=== PATIENT | female | born 1935 | race Hispanic/Latino ===

== ENCOUNTER → 2019-06-09 | Outpatient (CLI) | payer OTHER, MEDICARE ==
[~2019-06-09] MED LIST: ALBU8.5H8; AMLODIPINE PO; CETI10CA5 PO; MONT10TA21 PO; OMEP40CA13 PO; SPIRIVA; SYMBICORT
== END | disposition home or self-care (01) ==
LOC: SHCH 14:46
PROVIDERS: ATTEND Internal Medicine Cardiovascular Disease
DX: R06.9 Unspecified abnormalities of breathing (principal)
CPT/HCPCS: 93306; 93356

== ENCOUNTER 2020-09-20 13:41 | Observation (INO) | payer OTHER, MEDICARE ==
[~2020-09-20] VITALS: Ht 165.1 cm; Wt 82.1 kg
[~2020-09-20 13:41] MED LIST changes: -OMEP40CA13 PO; +OMEP40CA21 PO
[2020-09-20 14:00] VITALS: BP 154/51
[2020-09-20 14:33] LABS: BASOPHILS % (AUTO) 0.1 % (0.0-5.0); EOSINOPHILS % (AUTO) 0.1 % (0.0-8.0); LYMPHOCYTES % (AUTO) 8.8 % (21.0-51.0); MEAN CORPUSCULAR HEMOGLOBIN 30.8 pg (27.0-33.0); MEAN CORPUSCULAR HGB CONC 32.4 g/dL (32.0-36.0); MEAN CORPUSCULAR VOLUME 95.2 fL (79-99); MONOCYTES % (AUTO) 2.9 % (3.0-13.0); NEUTROPHILS % (AUTO) 87.2 % (40.0-77.0); PLATELET COUNT (AUTO) 244 K/uL (130-400); RED BLOOD CELL COUNT(AUTO) 3.99 MIL/uL (4.00-5.50); RED CELL DISTRIBUTION WIDTH 12.6 % (11.0-15.5); WHITE BLOOD COUNT (AUTO) 9.8 K/uL (4.8-10.8)
[2020-09-20 14:48] LABS: ALBUMIN 3.8 g/dL (3.5-5.0); BILIRUBIN,TOTAL 0.6 mg/dL (0.2-1.0); CREATININE 1.4 mg/dL (0.5-1.5); TOTAL PROTEIN, SERUM 7.4 g/dL (6.0-8.3)
[2020-09-20 15:03] LABS: POTASSIUM 6.3 mmol/L (3.5-5.1)
[2020-09-20] MEDS ORDERED: CALCIUM GLUC 1GM VIAL 1 GM in 0.9%NACL 100ML 100 ML IV ONE (17:00)
[2020-09-20] MEDS ORDERED: KAYEXALATE 15GM/60ML PO ONE (17:00)
[2020-09-20] MEDS ORDERED: SODIUM BICARB 8.4% 50ML SYRINGE IVP ONE (17:00)
[2020-09-20] MEDS ORDERED: INSULIN HUMULIN R 100 UNIT/ML 3ML IV ONE ×2 (17:00→19:50)
[2020-09-20] MEDS ORDERED: DEXTROSE 50%-WATER 25 GM/50 ML VIAL IV ONE (17:00)
[2020-09-20] MEDS ORDERED: FUROSEMIDE 40 MG UD CUP PO ONE (17:00)
[2020-09-20 18:00] VITALS: BP 166/61
[2020-09-20] MEDS ORDERED: KAYEXALATE 15GM/60ML ONE (18:32)
[2020-09-20] MEDS ORDERED: SODIUM BICARB 50MEQ 50ML VIAL 50 ML ONE (18:33)
[2020-09-20] MEDS ORDERED: FUROSEMIDE 40MG VIAL ONE (18:33)
[2020-09-20] MEDS ORDERED: DEXTROSE 50%-WATER 50 ML DISP.SYRIN IV ONE (18:33)
[2020-09-20] MEDS ORDERED: INSULIN HUMULIN R 100 UNIT/ML 3ML ONE ×2 (18:34→18:55)
[2020-09-20] MEDS ORDERED: CETI10TA86 PO (19:02)
[2020-09-20] MEDS ORDERED: OLME40TA18 PO (19:02)
[2020-09-20] MEDS ORDERED: SPIR100T5 PO (19:02)
[2020-09-20] MEDS ORDERED: NEBI5TAB8 PO (19:02)
[2020-09-20 19:24] VITALS: BP 169/56
[2020-09-20] MEDS ORDERED: ONDANSETRON 4MG INJ IV PRN (19:30)
[2020-09-20] MEDS ORDERED: ACETAMINOPHEN 325 MG TAB PO PRN ×2 (19:30)
[2020-09-20] MEDS: PHARMACY COMMUNICATION MISC SCH (19:48)
[2020-09-20] MEDS: HYDRALAZINE 25MG TABLET PO SCH (20:57)
[2020-09-20] MEDS ORDERED: FAMOTIDINE 20MG VIAL IV SCH (21:00)
[2020-09-20 21:30] VITALS: BP 154/51
[2020-09-20] MEDS: ALBUTEROL 0.083% 2.5 MG/3 ML INH IH SCH (21:46)
[2020-09-21] VITALS (7 sets, daily range): BP systolic 131–174; BP diastolic 50–69
[2020-09-21] MEDS: PHARMACY COMMUNICATION MISC SCH
[2020-09-21] MEDS: ALBUTEROL 0.083% 2.5 MG/3 ML INH IH SCH ×3 (01:23→11:03)
[2020-09-21] MEDS ORDERED: FLUT1BLS15 IH (03:28)
[2020-09-21] MEDS ORDERED: OLME40TA18 PO (03:28)
[2020-09-21] MEDS ORDERED: PRED10TA3 PO ×2 (03:28)
[2020-09-21] MEDS ORDERED: ALBU8.5H8 IH (03:28)
[2020-09-21] MEDS ORDERED: PANT40TA54 PO (03:28)
[2020-09-21] MEDS ORDERED: MONT10TA21 PO (03:28)
[2020-09-21] MEDS ORDERED: FLUT16H NASAL (03:28)
[2020-09-21] MEDS ORDERED: AMLO-257 PO (03:28)
[2020-09-21] MEDS ORDERED: SPIR100T5 PO (03:28)
[2020-09-21] MEDS: HYDRALAZINE 25MG TABLET PO SCH ×2 (04:15→13:38)
[2020-09-21 06:27] LABS: BASOPHILS % (AUTO) 0.3 % (0.0-5.0); EOSINOPHILS % (AUTO) 0.7 % (0.0-8.0); HEMATOCRIT 36.8 % (36-48); LYMPHOCYTES % (AUTO) 15.7 % (21.0-51.0); MEAN CORPUSCULAR HEMOGLOBIN 30.4 pg (27.0-33.0); MEAN CORPUSCULAR HGB CONC 32.9 g/dL (32.0-36.0); MEAN CORPUSCULAR VOLUME 92.5 fL (79-99); MONOCYTES % (AUTO) 9.6 % (3.0-13.0); NEUTROPHILS % (AUTO) 72.6 % (40.0-77.0); PLATELET COUNT (AUTO) 211 K/uL (130-400); RED BLOOD CELL COUNT(AUTO) 3.98 MIL/uL (4.00-5.50); RED CELL DISTRIBUTION WIDTH 12.6 % (11.0-15.5); WHITE BLOOD COUNT (AUTO) 12.4 K/uL (4.8-10.8)
[2020-09-21 06:43] LABS: CREATININE 1.4 mg/dL (0.5-1.5); POTASSIUM 4.5 mmol/L (3.5-5.1)
[2020-09-21] MEDS ORDERED: NON-FORMULARY MEDICATION 1 EACH (Cetirizine HCl 10 MG) PO SCH (09:00)
[2020-09-21] MEDS ORDERED: NEBIVOLOL 5 MG PO SCH (09:00)
[2020-09-21] MEDS ORDERED: ENOXAPARIN SODIUM 40 MG/0.4 ML SYRINGE SQ SCH (09:00)
[2020-09-21] MEDS ORDERED: CETIRIZINE HCL 5 MG TABLET PO SCH (09:00)
[2020-09-21] MEDS ORDERED: AMLODIPINE 10 MG PO SCH (09:00)
[2020-09-21] MEDS ORDERED: AMLODIPINE 5 MG TAB PO SCH ×2 (09:00)
[2020-09-21] MEDS ORDERED: NEBIVOLOL HCL 5 MG PO SCH (09:00)
[2020-09-21 12:15] LABS: CREATININE 1.4 mg/dL (0.5-1.5); POTASSIUM 4.3 mmol/L (3.5-5.1)
[2020-09-21 12:53] LABS: APPEARANCE,URINE Clear (CLEAR); BILIRUBIN,URINE Negative (NEGATIVE); COLOR,URINE Yellow (YELLOW); GLUCOSE, URINE (UA) 500 mg/dL (NEGATIVE); KETONES,URINE Negative (NEGATIVE); LEUKOCYTE ESTERASE ,URINE Negative (NEGATIVE); NITRATE,URINE Negative (NEGATIVE); OCCULT BLOOD,URINE Negative (NEGATIVE); PH,URINE 7.5 (5.0-8.0); PROTEIN,URINE Negative (NEGATIVE); UROBILINOGEN,URINE 0.2 mg/dL (0.2-1.0)
[2020-09-21 13:17] LABS: BACTERIA,URINE Rare /HPF (None Seen); RBC,URINE 0-1 /HPF (0-1); SQUAMOUS EPITHELIAL CELL,UR Rare /HPF (0-2); WBC,URINE 0-1 /HPF (0-1)
[2020-09-21 14:18] LABS: HEMOGLOBIN A1C 5.2 % (4.0-6.0)
[2020-09-21] MEDS ORDERED: AMLO-258 PO (15:39)
[2020-09-22] MEDS ORDERED: MONTELUKAST SODIUM 10 MG TAB PO SCH (13:00)
[2020-09-22] MEDS ORDERED: PANTOPRAZOLE 40 MG TAB DR PO SCH (13:00)
[2020-09-22] MEDS ORDERED: PREDNISONE 10 MG TABLET PO SCH (13:00)
== END 2020-09-21 19:55 | disposition home or self-care (01) ==
LOC: EDH 13:41 → EDHIP 19:04 → 4BH 09-21 02:45
PROVIDERS: ADMIT Internal Medicine; ATTEND Internal Medicine
DX: E87.5 Hyperkalemia (principal); I10 Essential (primary) hypertension; J45.909 Unspecified asthma, uncomplicated; Z79.899 Other long term (current) drug therapy; Z90.710 Acquired absence of both cervix and uterus; Z96.651 Presence of right artificial knee joint
CPT/HCPCS: 36415 ×2; 71045; 80048 ×2; 80053; 81001; 82947; 82948 ×4; 83036; 84132; 84484; 85025 ×2; 86140; 93005 ×2; 94640 ×4; 94664; 96372; 96374; 96375; 96376; 99285; G0378 ×24; J0610; J1650; J1815 ×2; J3490 ×2; J7070; 96365; J1940

== ENCOUNTER 2021-01-26 13:48 | Emergency (ER) | payer OTHER, MEDICARE ==
[~2021-01-26] VITALS: Ht 157.5 cm; Wt 79.4 kg
[~2021-01-26 13:48] MED LIST changes: -ALBU8.5H8; +ALBU8.5H8 IH; +AMLO-258 PO; +CETI10TA87 PO; +FLUT16H NASAL; +FLUT1BLS15 IH; +NEBI5TAB8 PO; -OMEP40CA21 PO; +PANT40TA54 PO; +PRED10TA3 PO; -SPIRIVA; -SYMBICORT
[2021-01-26 14:27] LABS: BASOPHILS % (AUTO) 0.9 % (0.0-5.0); EOSINOPHILS % (AUTO) 3.1 % (0.0-8.0); LYMPHOCYTES % (AUTO) 14.2 % (21.0-51.0); MEAN CORPUSCULAR HEMOGLOBIN 28.8 pg (27.0-33.0); MONOCYTES % (AUTO) 8.6 % (3.0-13.0); NEUTROPHILS % (AUTO) 72.5 % (40.0-77.0); PLATELET COUNT (AUTO) 225 K/uL (130-400); RED BLOOD CELL COUNT(AUTO) 3.89 MIL/uL (4.00-5.50); RED CELL DISTRIBUTION WIDTH 13.1 % (11.0-15.5); WHITE BLOOD COUNT (AUTO) 10.1 K/uL (4.8-10.8)
[2021-01-26 14:47] LABS: CREATININE 1.2 mg/dL (0.5-1.5); POTASSIUM 4.2 mmol/L (3.5-5.1)
[2021-01-26] MEDS ORDERED: ALBUTEROL 0.083% 2.5 MG/3 ML INH IH ONE (14:48)
[2021-01-26 14:51] LABS: ALBUMIN 3.4 g/dL (3.5-5.0); BILIRUBIN,TOTAL 0.6 mg/dL (0.2-1.0); TOTAL PROTEIN, SERUM 6.8 g/dL (6.0-8.3)
[2021-01-26 15:09] LABS: APPEARANCE,URINE Clear (CLEAR); BILIRUBIN,URINE Negative (NEGATIVE); COLOR,URINE Yellow (YELLOW); GLUCOSE, URINE (UA) Negative (NEGATIVE); KETONES,URINE Negative (NEGATIVE); LEUKOCYTE ESTERASE ,URINE Trace (NEGATIVE); NITRATE,URINE Negative (NEGATIVE); OCCULT BLOOD,URINE Trace (NEGATIVE); PROTEIN,URINE Negative (NEGATIVE); UROBILINOGEN,URINE 0.2 mg/dL (0.2-1.0)
[2021-01-26] MEDS ORDERED: LABETALOL 20MG SYG IV ONE (15:25)
[2021-01-26 15:44] LABS: BACTERIA,URINE Few /HPF (None Seen); RBC,URINE 0-1 /HPF (0-1); WBC,URINE 0-1 /HPF (0-1)
[2021-01-26 15:45] LABS: SQUAMOUS EPITHELIAL CELL,UR Moderate /HPF (0-2)
[2021-01-26] MEDS ORDERED: CLON0.1T PO (16:42)
[2021-01-26] MEDS ORDERED: NIFEDIPINE 10 MG CAP PO SCH ×2 (16:50)
[2021-01-26 17:33] VITALS: BP 148/52
== END 2021-01-26 18:15 | disposition home or self-care (01) ==
LOC: EDH 13:48
DX: I10 Essential (primary) hypertension (principal); D64.9 Anemia, unspecified; J45.909 Unspecified asthma, uncomplicated; E78.00 Pure hypercholesterolemia, unspecified; Z88.2 Allergy status to sulfonamides; Z88.1 Allergy status to other antibiotic agents; Z88.0 Allergy status to penicillin; Z88.6 Allergy status to analgesic agent; Z88.8 Allergy status to other drugs, medicaments and biological substances; Z79.899 Other long term (current) drug therapy; Z79.52 Long term (current) use of systemic steroids
CPT/HCPCS: 36415; 71045; 80053; 81001; 84484; 85025; 93005; 94640; 96374

== ENCOUNTER → 2022-12-07 | Outpatient (CLI) | payer OTHER, MEDICARE ==
[~2022-12-07] MED LIST changes: +CLON0.1T PO; +MONT-47 PO; -MONT10TA21 PO; +NEBI5TAB PO; -NEBI5TAB8 PO; +TRAM100T40 PO
[2022-12-07 12:47] LABS: CREATININE 1.5 mg/dL (0.5-1.5); POTASSIUM 4.5 mmol/L (3.5-5.1)
== END | disposition home or self-care (01) ==
LOC: LAB 09:59
PROVIDERS: ATTEND Internal Medicine Cardiovascular Disease
DX: I10 Essential (primary) hypertension (principal)
CPT/HCPCS: 36415; 80048

== ENCOUNTER → 2022-12-21 | Outpatient (CLI) | payer OTHER, MEDICARE ==
[2022-12-21 12:35] LABS: CREATININE 1.5 mg/dL (0.5-1.5); POTASSIUM 4.3 mmol/L (3.5-5.1)
== END | disposition home or self-care (01) ==
LOC: LAB 09:09
PROVIDERS: ATTEND Internal Medicine Cardiovascular Disease
DX: I10 Essential (primary) hypertension (principal)
CPT/HCPCS: 36415; 80048

== ENCOUNTER → 2023-01-08 | Outpatient (CLI) | payer OTHER, MEDICARE ==
[2023-01-08 12:29] LABS: CREATININE 1.1 mg/dL (0.5-1.5); POTASSIUM 4.2 mmol/L (3.5-5.1)
== END | disposition home or self-care (01) ==
LOC: LAB 08:20
PROVIDERS: ATTEND Nurse Practitioner Acute Care
DX: I10 Essential (primary) hypertension (principal)
CPT/HCPCS: 36415; 80048

== ENCOUNTER → 2023-01-19 | Outpatient (CLI) | payer OTHER, MEDICARE ==
[2023-01-19 12:32] LABS: CREATININE 1.3 mg/dL (0.5-1.5); POTASSIUM 4.4 mmol/L (3.5-5.1)
== END | disposition home or self-care (01) ==
LOC: LAB 09:50
PROVIDERS: ATTEND Internal Medicine Cardiovascular Disease
DX: I10 Essential (primary) hypertension (principal)
CPT/HCPCS: 36415; 80048

== ENCOUNTER → 2023-03-30 | Outpatient (CLI) | payer OTHER, MEDICARE ==
[2023-03-30 12:33] LABS: CREATININE 1.5 mg/dL (0.5-1.5); POTASSIUM 4.8 mmol/L (3.5-5.1)
== END | disposition home or self-care (01) ==
LOC: LAB 09:10
PROVIDERS: ATTEND Internal Medicine Cardiovascular Disease
DX: I10 Essential (primary) hypertension (principal)
CPT/HCPCS: 36415; 80048

== ENCOUNTER → 2023-05-25 | Outpatient (CLI) | payer OTHER, MEDICARE | END | disposition home or self-care (01) | LOC: RAH 09:45 | PROVIDERS: ATTEND Nurse Practitioner Family | DX: M85.88 Other specified disorders of bone density and structure, other site (principal); M81.0 Age-related osteoporosis without current pathological fracture | CPT/HCPCS: 77080 ==

== ENCOUNTER → 2023-08-27 | Outpatient (CLI) | payer OTHER, MEDICARE ==
[~2023-08-27] MED LIST changes: -NEBI5TAB PO; +NEBI5TAB9 PO
[2023-08-27 12:55] LABS: CREATININE 1.7 mg/dL (0.5-1.0); POTASSIUM 4.8 mmol/L (3.5-5.1)
== END | disposition home or self-care (01) ==
LOC: LAB 09:14
PROVIDERS: ATTEND Nurse Practitioner Acute Care
DX: I10 Essential (primary) hypertension (principal)
CPT/HCPCS: 36415; 80048

== ENCOUNTER → 2024-05-26 | Outpatient (CLI) | payer OTHER, MEDICARE ==
[2024-05-26 12:35] LABS: CREATININE 1.5 mg/dL (0.5-1.0); POTASSIUM 5.2 mmol/L (3.5-5.1)
== END | disposition home or self-care (01) ==
LOC: LAB 09:01
PROVIDERS: ATTEND Internal Medicine Cardiovascular Disease
DX: I10 Essential (primary) hypertension (principal)
CPT/HCPCS: 36415; 80048

== ENCOUNTER 2024-11-06 12:45 | Observation (INO) | payer OTHER, MEDICARE ==
[~2024-11-06] VITALS: Ht 165.1 cm; Wt 67.6 kg
[~2024-11-06 12:45] MED LIST changes: -TRAM100T40 PO; +TRAM100T56 PO
--- NOTE | 2024-11-06 13:20 | NUR ---
PATIENT REFUSED BLOOD PRESSURE READING DUE TO PAIN. PT EDUCATED ON IMPORTANCE OF BP MONITORING, PT CONTINUES TO REFUSE.
[2024-11-06 13:23] LABS: APPEARANCE,URINE CLEAR (CLEAR); GLUCOSE, URINE (UA) NEGATIVE (NEGATIVE); LEUKOCYTE ESTERASE ,URINE NEGATIVE Leu/uL (NEGATIVE); NITRATE,URINE NEGATIVE (NEGATIVE); OCCULT BLOOD,URINE NEGATIVE (NEGATIVE)
[2024-11-06 13:29] LABS: ADD UA MICROSCOPIC NO
--- NOTE | 2024-11-06 13:37 | ERN ---
General Chief Complaint: Mechanical Fall Stated Complaint: FALL AND SYNCOPAL EPISODE Time Seen by MD: 12:47 Source: patient History of Present Illness Initial Comments Patient is a an 89-year-old female coming in after she had a syncopal episode earlier today. Per patient she was walking into a restroom after drinking some water felt as if the water was stuck in her throat and passed out. Allergies: Coded Allergies: aspirin (Unverified Allergy, Severe, SHORTNESS OF BREATH, 08/01/13) succinylcholine (Unverified Allergy, Severe, BECAME VERY RIGID, COULD NOT OPEN MOUTH, 08/01/13) pravastatin (Unverified Allergy, Intermediate, 03/03/21) Penicillins (Unverified Allergy, Unknown, GENERALIZED RASH, 08/01/13) acetaminophen (Unverified Allergy, Unknown, SHORTNESS OF BREATH, 12/04/14) WHEEZING ibuprofen (Unverified Allergy, Unknown, TRIGGERS ASTHMA, 08/01/13) propofol (Unverified Allergy, Unknown, 09/21/20) sulfamethoxazole (Unverified Allergy, Unknown, STOMACH PAIN, 08/01/13) trimethoprim (Unverified Allergy, Unknown, STOMACH PAIN, 08/01/13) Home Meds Active Scripts Tramadol HCl (Tramadol HCl) 100 Mg Tablet, 100 MG PO TID, #20 TAB Prov:LYRIC MEYER MD 03/03/21 Clonidine HCl (Clonidine HCl) 0.1 Mg Tablet, 0.1 MG PO TIDP PRN for IF SBP GREATER THAN 180, #21 TAB Prov:SERGIO HANEY 01/26/21 Amlodipine Besylate (Amlodipine Besylate) 10 Mg Tablet, 10 MG PO DAILY for 30 Days, #30 TAB 0 Refills Prov:PARDEEP SCHWARZ MD 09/21/20 Reported Medications Fluticasone Propionate (Flonase Nasal [place]) 50 Mcg/[place], 1 INHALER NASAL DAILY, SPRAY 09/21/20 Pantoprazole Sodium (Pantoprazole Sodium) 40 Mg Tablet.dr, 40 MG PO DAILY, TAB 09/21/20 Montelukast Sodium (Singulair) 10 Mg Tablet, 10 MG PO DAILYBKFST, TAB 09/21/20 Prednisone (Prednisone) 10 Mg Tablet, 10 MG PO DAILY for 3 Days, TAB 09/21/20 Prednisone (Prednisone) 10 Mg Tablet, 20 MG PO DAILYBKFST for 3 Days, TAB 09/21/20 Albuterol Sulfate (Proair Hfa) 8.5 Gm Hfa.aer.ad, 8.5 GM IH Q6HPRN PRN for asthma 09/21/20 Fluticasone/Umeclidin/Vilanter (Trelegy Ellipta 200-62.5-25) 1 Each Blst.w.dev, 1 EACH IH DAILY 09/21/20 Nebivolol HCl (Bystolic) 5 Mg Tablet, 5 MG PO DAILY, TAB 09/20/20 Cetirizine HCl (Cetirizine HCl) 10 Mg Tab.chew, 10 MG PO DAILY, TAB.CHEW 09/20/20 Cetirizine HCl (Zyrtec) 10 Mg Capsule, 10 MG PO HS, CAP 12/03/14 [Amlodipine] No Conflict Check, 10 MG PO DAILY 12/03/14 Past Medical History Past Medical History: Asthma, High Cholesterol, Hypertension, Renal Disese Past Surgical History: None Surgical History Other: BLADDER REPAIR, BTL, LUMBAR FRACTURES, LIPOMA REMOVAL, RIGHT KNEE, SHOULDER Female( History) History: Not Applicable ROS Dictation CONSTITUTIONAL: No chills, no fever, no weakness, no diaphoresis, no malaise. HEAD/FACE: No signs of trauma. EENT: No eye pain, no blurred vision, no tearing, no double vision, no ear pain, no ear discharge, no nose pain, no nasal congestion, no throat pain, no throat swelling, no mouth pain. RESPIRATORY: No cough, no orthopnea, no SOB, no stridor, no wheezing. CARDIOVASCULAR: No chest pain, no edema, no palpitations, no syncope. GASTROINTESTINAL/ABDOMINAL: No abdominal pain, no constipation, no diarrhea, no nausea, no vomiting. GENITOURINARY: No abnormal discharge, no dysuria, no frequent urination, no hematuria. No complaints of pain in the genitals. MUSCULOSKELETAL: No back pain, no gout, no joint pain, no joint swelling, no muscle pain, no muscle stiffness, no neck pain. INTEGUMENTARY: No change in color, no change in hair/nails, no dryness, no lesion, no lumps, no rash. NEUROLOGICAL/PSYCH: No anxiety, not depressed, no emotional problem, no headache, no numbness, no pre-existing deficit, no history of seizures, no tremors, no weakness. HEMATOLOGIC/LYMPHATIC: Not anemic, no history of blood clots, no apparent bleeding, no bruising, glands not swollen. All Systems Negative, Except as Noted. Physical Exam Physical Exam Dictation VITAL SIGNS: Reviewed. GENERAL APPEARANCE: Alert, oriented x3, no acute distress, obese. HEAD AND FACE: Non-traumatic. EYES: PERRL, pink conjunctivas, eyelid no trauma, anterior chamber clear. EARS: Pinnas intact and no signs of trauma or erythema. Ear canals clear and no discharge. TMs no erythema. NOSE: No discharge, no bleeding. OROPHARYNX: Mouth normal, teeth no caries, tongue pink. Pharynx clear, no erythema. Tonsils no exudates, no abscesses noted. Mucous membrane moist. NECK: Supple, non-tender, no thyromegaly, no masses, no JVD, no bruits. BREAST: Deferred. CHEST: No tenderness, no crepitus, no paradoxical movement, no retractions. LUNGS: Clear, well-ventilated, symmetric, no rales, no wheezing, no rhonchi, no stridor, good breath sounds bilaterally. HEART: Regular rate, regular rhythm, no murmur, no gallops. VASCULAR: No peripheral edema. ABDOMEN: Soft, positive bowel sounds, nondistended, no guarding, nontender, no rebound, no masses no hepatomegaly, no splenomegaly, no Sauceda's sign, no hernias. RECTAL: Deferred. GENITAL: Deferred. NEUROLOGICAL: Normal speech, gross motor function intact, gross sensory function intact. MUSCULOSKELETAL: Neck nontender, full range of motion, back nontender, full range of motion. EXTREMITIES: Nontender, full range of motion. SKIN: Color pink, dry, no turgor, no rash, no lacerations, no abrasions, no contusions. LYMPHATICS: Deferred. Results Laboratory and Microbiology Lab and Micro Result Laboratory Tests Test 11/06/24 13:12 11/06/24 13:30 Urine Color YELLOW (YELLOW) Urine Appearance CLEAR (CLEAR) Urine pH 6.0 (5.0-8.0) Urine Specific [place] 1.015 (1.001-1.031) Urine Protein NEGATIVE mg/dL (NEGATIVE) Urine Glucose (UA) NEGATIVE mg/dL (NEGATIVE) Urine Ketones NEGATIVE mg/dL (NEGATIVE) Urine Occult Blood NEGATIVE (NEGATIVE) Urine Nitrate NEGATIVE (NEGATIVE) Urine Bilirubin NEGATIVE mg/dL (NEGATIVE) Urine Urobilinogen 0.2 mg/dL (0.2-1.0) Urine Leukocyte Esterase NEGATIVE [place]/uL White Blood Count 14.3 K/uL (4.8-10.8) H Red Blood Count 3.87 MIL/uL (4.00-5.50) L Hemoglobin 12.1 g/dL (12.0-16.0) Hematocrit 35.6 % (36-48) L Mean Corpuscular Volume 92.0 fL (79-99) Mean Corpuscular Hemoglobin 31.3 pg (27.0-33.0) Mean Corpuscular Hemoglobin Concent 34.0 g/dL (32.0-36.0) Red Cell Distribution Width 12.7 % (11.0-15.5) Platelet Count 202 K/uL (130-400) Mean Platelet Volume 9.6 fL (7.5-10.5) Immature Granulocyte % (Auto) 5.3 % (0-1) H Neutrophils (%) (Auto) 70.8 % (40.0-77.0) Lymphocytes (%) (Auto) 15.2 % (21.0-51.0) L Monocytes (%) (Auto) 7.2 % (3.0-13.0) Eosinophils (%) (Auto) 1.1 % (0.0-8.0) Basophils (%) (Auto) 0.4 % (0.0-5.0) Neutrophils # (Auto) 10.1 K/uL (1.8-7.7) H Lymphocytes # (Auto) 2.2 K/uL (1.0-4.8) Monocytes # (Auto) 1.0 K/uL (0.1-1.0) Eosinophils # (Auto) 0.15 K/uL (0.00-0.70) Basophils # (Auto) 0.06 K/uL (0.00-0.20) Absolute Immature Granulocyte (auto 0.75 K/uL (0-1) Nucleated Red Blood Cells 0.0 % (0.0-0.19) Sodium Level 139 mmol/L (136-145) Potassium Level 4.2 mmol/L (3.5-5.1) Chloride Level 104 mmol/L (101-111) Carbon Dioxide Level 29 mmol/L (21-32) Blood Urea Nitrogen 46 mg/dL (7-18) H Creatinine 1.4 mg/dL (0.5-1.0) H Glomerular Filtration Rate Calc 36 mL/min (>90) Random Glucose 109 mg/dL (70-105) H Total Calcium 8.8 mg/dL (8.5-10.1) Magnesium Level 2.30 mg/dL (1.80-2.40) Troponin I High Sensitivity 15 ng/L (4-50) Labs Reviewed?: Yes EKG/XRAY/US/CT/MRI EKG Comment 11/06/2024 time 1:01 p.m. Ventricular rate [address] wave elevation or depression MDM MDM: Differential diagnosis: Syncope, chest wall pain, right lung infiltrate, skin tear Rationale: Tests considered and ordered secondary to shared decision making include: Previous outside records reviewed: Old ER visits. Risk of complication and/or morbidity or mortality of patient management: None Medications-Per medication reconciliation Need for hospitalization: Patient does meet criteria for hospitalization. Need for emergency major/minor surgery: No There are no social concerns with this patient. Prescription drug management Prescriptions will include symptomatic care Patient's prior external medical records from other ER visits were reviewed by me as indicated. Prior testing and results from previous visits were reviewed. Prior tests were taken into account with medical decision making and resource utilization, independent historian/historians were used to obtain complete medical history. I independently interpreted the test that were performed, results were reviewed by me and considered findings on radiology if ordered. Medical management and examination interpretation discussions were had by me with other qualified healthcare professionals as indicated for the patient's care. Patient will be admitted under the care of [facility]. ED Course Orders Procedure Category Date Status Time Cbc With Differential LAB 11/06/24 Complete 12:47 Chest 1vw RAD 11/06/24 Resulted 12:47 12 Lead Ekg Tracing- EKG 11/06/24 Complete Technical 12:47 Magnesium LAB 11/06/24 Complete 12:47 Troponin I High LAB 11/06/24 Complete Sensitivity 12:47 Urinalysis Profile LAB 11/06/24 Complete 12:47 Basic Metabolic Panel LAB 11/06/24 Complete 12:47 Tetanus,Diphtheria PHA 11/06/24 Complete Tox [Adult] (Diphther 13:00 Tramadol Hcl (Ultram) PHA 11/06/24 Complete 14:00 Ct Chest W/O Contrast CT 11/06/24 Logged 14:32 Lidocaine/Prilocaine PHA 11/06/24 Complete (Emla) 14:37 Current Medications Medications (Trade) Dose Ordered Sig/Imelda Route PRN Reason Start Time Stop Time Status Last Admin Dose Admin Lidocaine/ Prilocaine ([place]mla) 1 appl ONCE STAT TP 11/06/24 14:37 11/06/24 14:39 DC 11/06/24 14:43 Tetanus/ Diphtheria Toxoids Adsorbed (DiphthERIA-teTANUS TOXOID [ADULT]/ DECAVAC) 0.5 ml ONCE ONCE IM 11/06/24 13:00 11/06/24 13:01 DC 11/06/24 13:03 Tramadol HCl (UltRAM) 50 mg ONCE ONCE PO 11/06/24 14:00 11/06/24 14:01 DC 11/06/24 14:00 Vital Signs Date Time Temp Pulse Resp B/P (MAP) Pulse Ox O2 Delivery O2 Flow Rate FiO2 11/06/24 12:49 98.8 68 19 219/72 98 Room Air DX & DISP Disposition: Inpatient Decision to Admit Time: 14:57 Departure Impression: Primary Impression: Syncope Additional Impressions: Skin tear, Right pulmonary infiltrate on CXR, Pneumonia Condition: Stable Referrals: LOLI KAMARA DO (PCP) CORNELL MCKAY MD Nov 06, 2024 13:37
[2024-11-06 13:44] LABS: IMMATURE GRANULOCYTE ABSOLUTE 0.75 K/uL (0-1); NUCLEATED RED BLOOD CELLS 0.0 % (0.0-0.19); PLATELET COUNT (AUTO) 202 K/uL (130-400); RED BLOOD CELL COUNT(AUTO) 3.87 MIL/uL (4.00-5.50); RED CELL DISTRIBUTION WIDTH 12.7 % (11.0-15.5); WHITE BLOOD COUNT (AUTO) 14.3 K/uL (4.8-10.8)
[2024-11-06 13:49] LABS: CREATININE 1.4 mg/dL (0.5-1.0); GLOMERULAR FILTR. RATE CALC 36.0 mL/min (>90); GLUCOSE,RANDOM 109.0 mg/dL (70-105); SODIUM SERUM 139.0 mmol/L (136-145); UREA NITROGEN, BLOOD 46.0 mg/dL (7-18)
--- NOTE | 2024-11-06 13:49 | EKG ---
[facility] Test Date: 2024-11-06 Test Time: 13:01:15 Pat Name: LILIANA WHITMAN Department: ED Room: 401 Gender: F Systems Security Analyst: [id number] Requested By: CORNELL MCKAY Order Number: [id number] Reading MD: Ricki Johnson Measurements Intervals [place] Rate: 58 P: 0 VA: 0 QRS: -12 QRSD: 94 T: 21 QT: 431 QTc: 425 Interpretive Statements SINUS RHYTHM Probable left ventricular hypertrophy Poor R wave progression Compared to ECG 01/26/2021 14:43:30 Junctional rhythm now present Sinus rhythm no longer present Electronically Signed On 11-07-2024 07:30:21 CDT by Ricki Johnson Please click the below link to view image of tracing.
--- NOTE | 2024-11-06 13:58 | NUR ---
XRAY MADE AWARE AT THIS TIME OF PENDING PROCEDURE./[place]
--- NOTE | 2024-11-06 14:42 | HMCIMG ---
EXAM: CR Chest, 1 View. CLINICAL HISTORY: fall COMPARISON: None provided. FINDINGS: LUNGS: The lungs show no infiltrate or other acute finding. PLEURAL SPACES: No evidence of pleural effusion or pneumothorax. MEDIASTINUM: The cardiomediastinal silhouette is within normal limits. BONES: No acute osseous abnormality. IMPRESSION: No acute cardiopulmonary pathology is evident. /[place]
[2024-11-06] MEDS: LIDOCAINE/PRILOCAINE CREAM 5GM TUBE TP STA (14:43)
[2024-11-06] MEDS ORDERED: LACTULOSE 20 GM/30 ML UDCUP PO PRN (15:00)
--- NOTE | 2024-11-06 15:30 | NUR ---
PATIENT TRANSPORTED TO CT BY TYPO MACHINE OPERATOR.
[2024-11-06] MEDS: 0.9%NACL 1000ML 1,000 ML IV SCH ×2 (15:34→22:30)
--- NOTE | 2024-11-06 15:56 | NUR ---
PT RETURNED FROM CT.
--- NOTE | 2024-11-06 16:18 | HMCIMG ---
EXAM: CT Chest Without IV contrast. CLINICAL HISTORY: abnormal chest xray TECHNIQUE: Axial computed tomography images of the chest without intravenous contrast. COMPARISON: None provided. FINDINGS: LUNGS: No pulmonary mass. Dependent airway disease along bilateral lower lobes, presumed to represent basal atelectasis. PLEURAL SPACES: No evidence of pneumothorax. No pleural effusion. HEART: Mild cardiomegaly with coronary arteriosclerosis. No significant pericardial effusion. LYMPH NODES: No lymphadenopathy is evident. UPPER ABDOMEN: Sliding hiatus hernia. Mild bilateral perinephric fat stranding is concerning for renal parenchymal disease. BONES: Degenerative changes in the visualized spine. No acute osseous abnormality. IMPRESSION: 1. No acute intrathoracic findings. 2. Mild cardiomegaly with coronary arteriosclerosis. 3. Mild bilateral perinephric fat stranding, concerning for renal parenchymal disease. /[place]
--- NOTE | 2024-11-06 16:50 | NUR ---
REPORT GIVEN TO ERIC HA.
--- NOTE | 2024-11-06 16:53 | NUR ---
PATIENT TRANSPORTED TO [facility] [place].
--- NOTE | 2024-11-06 17:11 | HP ---
[facility] HISTORY & PHYSICAL Date Patient Seen: Nov 06, 2024 Time of Visit: 1830 Supervising Physician: [Dr. Rafael Tobin ] Primary Care Physician: Dr. Yadira Chambers ] Outpatient Specialists: [Dr. Oscar-nephro, Dr. Uribe-cardiology] Inpatient Consults: [Dr. Oneal-wounds ] PROBLEM LIST: Syncope-POA BARBIE on CKD-POA Hypertensive nhfczoo-ATV-dfrelhur Leukocytosis-POA, possibly reactive- no signs and symptoms of infectious process Traumatic fall-POA Wound laceration and cuts on nasal bridge, arms and legs with bruising on the chin resulted from the fall-POA HLD Asthma AJ Sinus bradycardia PLAN: -Admit to medsurg unit -Orthostatic BP q shift -Obtain 2decho -She will benefit in getting a continuous holter/Ziopatch monitoring, she follows-up with Dr. Uribe [facility]] -Obtain kidney US and urine electrolytes -Obtain CT maxillofacial, and XRAYs of the ribs, arms and legs to r/o fracture -Multimodal pain management -Consult wound MD concerning significant wounds on the arms and legs -PT/OT to eval andtreat -Orthostatic BP qshift -In reference to syncope, obtain Head CT and EEG, if significant findings, consider neuro consult -Pending carotid dopplers -Obtain covid and flu screen to rule-out any infectious processes -If leukocytosis worsen or any signs of infection, will consider starting on IV antibiotics. ED gave the patient a dose of Levaquin. HPI: [Patient is a 89-year-old female with PMH significant for HTN, bradycardia, HLD, asthma, AJ and CKD who had an unwitnessed syncopal event at home of unknown duration and triggers. Patient claims she was on her way to the bathroom to clear her throat of the awter she was trying to swallow then next thing she knew, she woke-up with blood on her arms and legs with wounds so she activated her medic-alert necklace. Her son lives few houses from her and able to call the EMS. She claims that it has been months since her last fall incident but this is the first time she ever had a fainting spell this bad. She sustained multiple laceration and cuts on her arms and left leg. Patient claims she was in her usual state of health prior to this unfortunate event and was not feeling ill at all. No prior HX of CVA or seizure. She claims that she has bradycardia episodes. She will benefit in getting a continuous holter/Ziopatch monitoring, she follows-up with Dr. Uribe [facility]. Physical assessment was negative for focal neurologic deficits. Goals of care were discussed with the patient and son, verbalizing understanding and agreement.] PAST MEDICAL HX: see above PAST SURGICAL HX: noncontributory SOCIAL HISTORY: No tobacco, ETOH, or illicit drug use Coded Allergies: aspirin (Unverified Allergy, Severe, SHORTNESS OF BREATH, 08/01/13) succinylcholine (Unverified Allergy, Severe, BECAME VERY RIGID, COULD NOT OPEN MOUTH, 08/01/13) pravastatin (Unverified Allergy, Intermediate, 03/03/21) Penicillins (Unverified Allergy, Unknown, GENERALIZED RASH, 08/01/13) acetaminophen (Unverified Allergy, Unknown, SHORTNESS OF BREATH, 12/04/14) WHEEZING ibuprofen (Unverified Allergy, Unknown, TRIGGERS ASTHMA, 08/01/13) propofol (Unverified Allergy, Unknown, 09/21/20) sulfamethoxazole (Unverified Allergy, Unknown, STOMACH PAIN, 08/01/13) trimethoprim (Unverified Allergy, Unknown, STOMACH PAIN, 08/01/13) REVIEW OF SYSTEMS: 12 point ROS reviewed with patient. Pertinent positives mentioned above. Otherwise negative. PHYSICAL EXAM: GENERAL: alert, weak, awake oriented x 3 HEENT: EOMI, Sclera non icteric, dry mucosa, cuts on her nasal bridge and bruise on her chin NECK: Supple, no JVD, trachea midline LUNGS: Clear breath sounds bilaterally. No wheezes HEART: Regular rate and rhythm. Normal S1 and S2, without murmurs ABD: Abdomen soft, nontender. Bowel sounds present EXT: No clubbing cyanosis or edema, wounds and cuts in BUE and left leg with steristrips NEURO: Alert and oriented to person, follows commands Vital Signs (last 8hr) Date Time Temp Pulse Resp B/P (MAP) Pulse Ox O2 Delivery O2 Flow Rate FiO2 11/06/24 16:23 98.1 61 24 131/59 98 Room Air* 0 21 11/06/24 15:45 98.1 65 24 196/78 98 Room Air* 0 21 11/06/24 15:20 98.1 61 24 219/72 98 Room Air* 0 21 11/06/24 14:20 98.1 72 24 97 Room Air* 0 21 11/06/24 13:20 98.1 61 24 98 Room Air* 0 21 11/06/24 12:49 98.8 68 19 219/72 98 Room Air LABS: Hematology Labs: Test 11/06/24 13:30 Range/Units White Blood Count 14.3 H 4.8-10.8 K/uL Red Blood Count 3.87 L 4.00-5.50 MIL/uL Hemoglobin 12.1 12.0-16.0 g/dL Hematocrit 35.6 L 36-48 % Mean Corpuscular Volume 92.0 79-99 fL Mean Corpuscular Hemoglobin 31.3 27.0-33.0 pg Mean Corpuscular Hemoglobin Concent 34.0 32.0-36.0 g/dL Red Cell Distribution Width 12.7 11.0-15.5 % Platelet Count 202 130-400 K/uL Mean Platelet Volume 9.6 7.5-10.5 fL Immature Granulocyte % (Auto) 5.3 H 0-1 % Neutrophils (%) (Auto) 70.8 40.0-77.0 % Lymphocytes (%) (Auto) 15.2 L 21.0-51.0 % Monocytes (%) (Auto) 7.2 3.0-13.0 % Eosinophils (%) (Auto) 1.1 0.0-8.0 % Basophils (%) (Auto) 0.4 0.0-5.0 % Neutrophils # (Auto) 10.1 H 1.8-7.7 K/uL Lymphocytes # (Auto) 2.2 1.0-4.8 K/uL Monocytes # (Auto) 1.0 0.1-1.0 K/uL Eosinophils # (Auto) 0.15 0.00-0.70 K/uL Basophils # (Auto) 0.06 0.00-0.20 K/uL Absolute Immature Granulocyte (auto 0.75 0-1 K/uL Nucleated Red Blood Cells 0.0 0.0-0.19 % Chemistry Labs: Test 11/06/24 13:30 Range/Units Sodium Level 139 136-145 mmol/L Potassium Level 4.2 3.5-5.1 mmol/L Chloride Level 104 101-111 mmol/L Carbon Dioxide Level 29 21-32 mmol/L Blood Urea Nitrogen 46 H 7-18 mg/dL Creatinine 1.4 H 0.5-1.0 mg/dL Glomerular Filtration Rate Calc 36 >90 mL/min Random Glucose 109 H 70-105 mg/dL Total Calcium 8.8 8.5-10.1 mg/dL Magnesium Level 2.30 1.80-2.40 mg/dL Troponin I High Sensitivity 15 4-50 ng/L DIAGNOSTICS / RADIOLOGY RESULTS: [ ] PLAN NEURO: Minimize central acting medications as possible. Maintain fall precautions, adequate lighting during the day PULMONARY: Supplemental 02 as needed. Maintain aspiration precautions at all times CARDIOVASCULAR: Follow hemodynamics. Vital signs per facility protocol GI & NUTRITION: Continue with nutritional support. Continue stool softeners and laxatives as needed. KIDNEYS & ELECTROLYTES: Strict monitoring of intake, output and overall fluid balance. Avoid nephrotoxic medications to the extent possible. Medications to be dosed according to renal function. Monitor electrolytes and replace as needed ENDOCRINE: Maintain blood glucose between 100-180 at all times. Hypoglycemia protocol in place INFECTIOUS DISEASE: Trend temperature, WBC and procalcitonin level Follow cultures, deescalate antibiotics as soon as possible. Panculture if new onset fever ONCOLOGY/HEMATOLOGY/COAGULATION: Monitor for s/s of bleeding Monitor hemoglobin, coagulation studies as needed SKIN: Pressure ulcer prevention per facility protocol Specialty mattress ORTHO/REHAB: Continue PT/OT Prophylaxis: Continue GI and DVT prophylaxis Code Status: Full Resuscitation Disposition: Home DAYANARA MARTIN AGROSANGELA Nov 06, 2024 17:11
[2024-11-06 17:15] VITALS: BP 154/74; PULSE 77; RESP 19; TEMP 97.7
[2024-11-06 17:39] VITALS: O2SAT 95
--- NOTE | 2024-11-06 18:28 | NUR ---
[facility] RETURNED CALL New order received for pain management
--- NOTE | 2024-11-06 19:08 | NUR ---
PATIENT TRANSPORTED FOR PROCEDURE
--- NOTE | 2024-11-06 19:10 | HMCIMG ---
EXAM: US Retroperitoneum, Renal. CLINICAL HISTORY: BARBIE vs. CKD TECHNIQUE: Real-time ultrasound of the retroperitoneum with image documentation. COMPARISON: None provided. FINDINGS: RIGHT KIDNEY: 9.4 x 4.3 cm. No renal mass or calculus. No hydronephrosis. LEFT KIDNEY: 0.4 x 4.1 no renal mass or calculus. No hydronephrosis. BLADDER: Unremarkable as visualized. MISCELLANEOUS: Increase echotexture of both kidneys consistent with medical renal disease IMPRESSION: Increase echotexture of both kidneys consistent with medical renal disease /[place]
[2024-11-06 20:00] VITALS: O2SAT 96
[2024-11-06] MEDS: LIDOCAINE 5% TOPICAL PATCH TP SCH (20:08)
[2024-11-06 20:22] VITALS: BP 118/72; PULSE 61; RESP 19; TEMP 98.1
--- NOTE | 2024-11-06 20:38 | HMCIMG ---
EXAM: CT Maxillofacial Without Intravenous Contrast. CLINICAL HISTORY: 89-year-old female with a fracture. TECHNIQUE: Axial computed tomography images of the face without intravenous contrast. Sagittal and coronal reformations performed. Dose reduction technique was used including one or more of the following: automated exposure control, adjustment of mA and kV according to patient size, and/or iterative reconstruction. CONTRAST: None COMPARISON: None provided. FINDINGS: BONES: No acute fracture or focal osseous lesion is mentioned in the context of the maxillofacial bones, but the clinical history does mention a fracture. Mild degenerative changes are noted in the CERVICAL SPINE. SOFT TISSUES: The soft tissues are unremarkable. SINUSES: The right maxillary sinus shows mucoperiosteal thickening suggesting sinusitis. A small retention cyst is also noted in the right maxillary sinus. The left Mastoid Airspace shows mucoperiosteal thickening, raising the question of mastoiditis. ORBITS: The orbits are normal. No retrobulbar hematoma or mass. IMPRESSION: 1. Right maxillary sinus mucoperiosteal thickening suggesting sinusitis, with a small retention cyst. 2. Left mastoid airspace mucoperiosteal thickening, question mastoiditis. /[place]
--- NOTE | 2024-11-06 21:07 | HMCIMG ---
EXAM: XR Left Tibia/Fibula, 5 Views. CLINICAL HISTORY: 89 year old female, rule out fracture on left tibia/fibula. COMPARISON: None provided. FINDINGS: BONES: No acute fracture or focal osseous lesion. JOINTS: No dislocation. The joint spaces are normal. SOFT TISSUES: Extensive vascular calcifications are seen. The soft tissues are otherwise unremarkable. IMPRESSION: 1. No acute osseous abnormality. /[place]
--- NOTE | 2024-11-06 21:07 | HMCIMG ---
EXAM: XR Right Tibia/Fibula, 6 Views. CLINICAL HISTORY: 89 year old female, rule out fracture on right tibia/fibula. COMPARISON: None provided. FINDINGS: BONES: No acute fracture or focal osseous lesion. Right knee arthroplasty is present without evidence of loosening. JOINTS: The right knee arthroplasty is without evidence of loosening. The joint spaces are otherwise normal. SOFT TISSUES: Vascular calcifications are present. The soft tissues are otherwise unremarkable. IMPRESSION: 1. No acute osseous abnormality. /[place]
[2024-11-06] MEDS: ALBUTEROL 0.083% 2.5 MG/3 ML INH IH PRN (22:00)
[2024-11-06] MEDS ORDERED: VANCOMYCIN PROTOCOL PER PHARMACY IV SCH (22:00)
[2024-11-06 22:03] VITALS: PULSE 60; RESP 19
--- NOTE | 2024-11-06 22:52 | HMCIMG ---
EXAM: XR Left Femur, 4 Views. CLINICAL HISTORY: 89 year old female rule out fracture on left femur COMPARISON: None provided. FINDINGS: BONES: No acute fracture or focal osseous lesion. JOINTS: No dislocation. The joint spaces are normal. SOFT TISSUES: Extensive vascular calcification is noted. The soft tissues are otherwise unremarkable. IMPRESSION: 1. No acute osseous abnormality. /[place]
--- NOTE | 2024-11-06 22:52 | HMCIMG ---
EXAM: XR Right Femur, 5 Views. CLINICAL HISTORY: 89 year old female with a rule out fracture on the right femur. COMPARISON: None provided. FINDINGS: BONES: No acute fracture or focal osseous lesion. A right knee arthroplasty is seen without loosening. JOINTS: No dislocation. The joint spaces are normal. SOFT TISSUES: The soft tissues are unremarkable. IMPRESSION: 1. No acute osseous abnormality. 2. Right knee arthroplasty without loosening. /[place]
--- NOTE | 2024-11-06 23:06 | HMCIMG ---
EXAM: CR Left Ribs, 4 views. CLINICAL HISTORY: Rule out fracture. COMPARISON: None provided. FINDINGS: No acute rib fracture or aggressive appearing osseous lesion. Old healed fracture of the left 11th rib. Mild osteopenia. Partially visualized metal implant in the left humerus. The lungs are clear. No pneumothorax or pleural effusion. Unremarkable soft tissues. IMPRESSION: No acute bony abnormality is evident. Old healed fracture of the left 11th rib. Mild osteopenia. /[place]
--- NOTE | 2024-11-06 23:07 | HMCIMG ---
EXAM: CR Right Humerus, 2 views. CLINICAL HISTORY: Rule out fracture. COMPARISON: None provided. FINDINGS: No acute fracture or aggressive appearing osseous lesion. Chronic fracture and deformity around the proximal metaphysis of the humerus. Osteopenia. Degenerative changes around the included shoulder and elbow joints. The soft tissues are unremarkable. IMPRESSION: No acute fracture. Chronic fracture and deformity around the proximal metaphysis of the humerus. Osteopenia and degenerative osseous changes. /[place]
--- NOTE | 2024-11-06 23:08 | HMCIMG ---
EXAM: CR Right Ribs, 4 views. CLINICAL HISTORY: Rule out fracture. COMPARISON: None provided. FINDINGS: No acute rib fracture or aggressive appearing osseous lesion. Osteopenia. The lungs are clear. No pneumothorax or pleural effusion. Unremarkable soft tissues. IMPRESSION: No acute rib fracture is evident. Osteopenia. /[place]
[2024-11-06] MEDS: VANCOMYCIN 1.25 GM/250 ML BAG 250 ML IV ONE (23:09)
--- NOTE | 2024-11-06 23:21 | HMCIMG ---
EXAM: XR Right Humerus, 2 Views. CLINICAL HISTORY: 89 year old female to rule out fracture. COMPARISON: None provided. FINDINGS: BONES: No acute fracture. Fixation hardware is present in the proximal humerus. JOINTS: No dislocation. The joint spaces are normal. SOFT TISSUES: The soft tissues are unremarkable. IMPRESSION: 1. No acute osseous abnormality. /[place]
[2024-11-06] MEDS ORDERED: CHOL100020 PO (23:30)
[2024-11-06] MEDS ORDERED: CHLO25TA3 PO (23:30)
[2024-11-06] MEDS ORDERED: FERS325 PO (23:30)
[2024-11-06] MEDS ORDERED: TELM40TA8 PO (23:30)
[2024-11-06] MEDS ORDERED: AMLO-257 PO (23:30)
[2024-11-06] MEDS ORDERED: CARV25TA PO (23:30)
[2024-11-06] MEDS ORDERED: FOLI0.8T53 PO (23:30)
[2024-11-06] MEDS ORDERED: MAG-156 PO (23:30)
[2024-11-07] VITALS (16 sets, daily range): BP systolic 135–185; BP diastolic 54–85; PULSE 60–88; RESP 17–19; TEMP 97.9–98.9; O2SAT 95–98
[2024-11-07 04:28] LABS: COVID19 (SARS ANTIGEN RAPID) PRESUMPTIVE NEGATIVE (NEGATIVE); INFLUENZA TYPE A Negative For Type A (NEGATIVE); INFLUENZA TYPE B Negative For Type B (NEGATIVE)
[2024-11-07] MEDS ORDERED: VANCOMYCIN PROTOCOL PER PHARMACY IV SCH (05:00)
[2024-11-07] MEDS ORDERED: PHARMACY COMMUNICATION MISC SCH (05:00)
[2024-11-07 05:09] LABS: CREATININE 1.3 mg/dL (0.5-1.0); GLOMERULAR FILTR. RATE CALC 40.0 mL/min (>90); GLUCOSE,RANDOM 132.0 mg/dL (70-105); PHOSPHORUS 3.3 mg/dL (2.5-4.9); SODIUM SERUM 136.0 mmol/L (136-145); UREA NITROGEN, BLOOD 41.0 mg/dL (7-18)
--- NOTE | 2024-11-07 05:52 | NUR ---
CT ON HOLD AT THIS TIME, PT REQUESTING MEDS BEFORE EXAM. RN AWARE AND WILL CALL BACK.
--- NOTE | 2024-11-07 06:28 | HMCIMG ---
EXAMINATION: DUPLEX ULTRASOUND EXAMINATION OF THE BILATERAL CAROTID AND VERTEBRAL ARTERIES. CLINICAL HISTORY: Syncope. COMPARISON: None provided. TECHNIQUE: Real-time ultrasound scan of the bilateral carotid and vertebral arteries, 2-D grayscale, with color Doppler flow and spectral waveform analysis. FINDINGS: Color and spectral Doppler interrogation of the carotid vessels on the right demonstrate peak systolic velocities as follows: CCA (Proximal and distal): 76 and 54 cm/s respectively. Bulb: 58 cm/s. ECA: 119 cm/s. ICA (Proximal, mid, and distal): 65, 81, and 93 cm/s respectively. Vertebral artery demonstrates antegrade flow: 58 cm/s. Right ICA/CCA ratio: 1.7 Peak systolic velocities on the left are as follows: CCA (Proximal and distal): 75 and 85 cm/s respectively. Bulb: 88 cm/s. ECA: 157 cm/s. ICA (Proximal, mid, and distal): 79, 95, and 127 cm/s respectively. Vertebral artery demonstrates antegrade flow: 37 cm/s. Left ICA/CCA ratio: 1.5 Both the common carotid arteries and their branches reveal mild intimal thickening. There are calcified plaques in the bilateral carotid bulb and proximal internal carotid arteries without significant stenosis. There are calcified plaques in the left common carotid artery without significant stenosis. The left internal carotid artery is tortuous. IMPRESSION: Mild intimal thickening in the bilateral carotid arteries and their branches. Calcified plaques as described. There is no significant flow limiting lesions in the remainder of the arteries. /[place]
[2024-11-07] MEDS: ENOXAPARIN SODIUM 30 MG/0.3 ML SQ SCH (09:30)
--- NOTE | 2024-11-07 12:06 | NUR ---
DCP:HOME Pt currently lives alone in her home. Pt's son Cathryn Menjivar [phone] lives a "few homes down". Pt does use a walker and cane at home to ambulate. Pt does have a provider for 28hrs that assist with home management and meals. PCP is Dr. Yadira Larois and uses [facility] for any RX needs. At NE pt will want to go home and family will assist with transportation. Addendum: 11/07/24 at 1209 by TERRELL SMALLWOOD SS Amended: Links added.
--- NOTE | 2024-11-07 12:15 | NUR ---
[facility] Consult: Patient assessed by wound healing team. See wound assessment. Assessment and recommendations provided to primary nurse. Education provided. Wound care done. Addendum: 11/07/24 at 1459 by BRIGITTE MOSLEY RN RN/ Amended: Links added.
--- NOTE | 2024-11-07 13:39 | PRN ---
Procedure Note [place] EEG Note # Demographics Type of EEG Read: - Routine EEG - without video Patient Location: Inpatient First Name: LILIANA Last Name: ANTONETTE Date of : 1935 Age: 89 Gender: Female Facility: [facility] Time of Initial Page (Central Time): 11/07/2024 12:22 First Contact with Site (Central Time): 11/07/2024 12:23 # EEG Interpretation Start Time of EEG Read (Central Time): 11/07/2024 11:03 Stop Time of EEG Read (Central Time): 11/07/2024 11:28 Duration: 0h 25m Technical Details: - The EEG electrodes were placed using the standard International 10-20 system of electrode placement. An accessory EKG lead was used during the course of this study. - This study was recorded using the [employer] EEG software Indication: - syncope # Description Photic Stimulation: Performed Hyperventilation: NOT performed Phases Captured: - awake - drowsy Symmetry: symmetric Posterior Dominant Rhythm: absent Predominant Frequencies: - non-posterior dominant alpha (8-12 Hz) - continuous (>90%) EKG: NSR # Abnormalities Stimulation: - photic stimulation does NOT cause abnormalities Epileptiform Abnormalities: - NOT present Focal Slowing: no Seizure: - NOT present # Impression Impression: normal # Clinical Correlation Clinical Correlation: A normal EEG does not exclude nor support the diagnosis of epilepsy. # Logistics Telemedicine: remote EEG review: EEG reviewed remotely # Demographics First Name: LILIANA Last Name: ANTONETTE Facility: [facility] Electronically signed at 11/07/2024 13:39 (Central Time) by MD LOUIS Oneill CHALITA C MD Nov 07, 2024 13:39
--- NOTE | 2024-11-07 15:14 | HMCSR ---
APPROVED REPORT EXAM: Two-dimensional and M-mode echocardiogram with Doppler and color Doppler. INDICATION ICD: Syncope episodes 2D Dimensions RVDd3.6 cmLVEF(%)70.3 (>50%)LA ESV INDEX (BP)40.61 mL/m2 IVSd0.9 (0.7-1.1cm)FS(%)40 % LVDd5.3 (3.8-5.6cm)LA (2D)4.1 (1.6-4.0cm) PWd1.1 (0.7-1.1cm)Ao Root(2D)3.1 (2.0-3.7cm) LVDs3.2 (2.5-4.0cm)LVOT diam2.1 (1.8-2.4cm) IVC diam1.7 cm Deformation Strain Apical 4-10.3 % Apical 2-16.8 % Apical 3-8.7 % Global Strain-11.9 % M-Mode Dimensions EPSS0.4 cm LA (MM)4.2 (1.6-4.0cm) Ao Root(MM)3.6 (2.0-3.7cm) Aortic Valve AoV Vmax1.4 m/Zelda Peak GR7.4 mmHgLVOT Vmax1.0 m/s AoV VTI0.3 mAo Mean GR3.7 mmHgLVOT VTI0.29 m BARBARA (VMAX)2.59 cm2Al P1/2T432 msAVA (VTI) 3.1 cm2 Mitral Valve MV E Vmax80.8 cm/sDECEL Kgak464 ms MV A Cnzb571.8 cm/sP 1/2 T89 ms E/A ratio0.8MVA (PHT)2.5 cm2 TDI E/E' Kijjbs10.2E/E' Zfmlgze51.5 Medial E' Peak V6.14 cm/sLateral E' Peak V4.90 cm/s Pulmonary Valve PV Vmax1.1 m/sPV VTI0.24 mPV Mean GR2.5 mmHg PV Peak GR4.6 mmHg Tricuspid Valve TR Vmax2.7 m/sRAP (EST) 3 wzZlLBTW17.6 mmHg TR Peak GR28.6 mmHg Left Ventricle The left ventricle is normal size. There is normal left ventricular wall thickness. The LVEF is > 55% . Stage I diastolic dysfunction. Right Ventricle The right ventricle is normal size. The right ventricular systolic function is normal. Atria The left atrium size is mildly dilated. The right atrium size is mildly dilated. Aortic Valve The aortic valve is normal in structure. Trace aortic regurgitation is present. There is no aortic va lvular stenosis. Mitral Valve Mild posterior annular calcification noted. Mitral valve leaflets open well. There is trace mitral va lve regurgitation noted. There is no mitral valve stenosis. Tricuspid Valve The tricuspid valve is normal in structure. There is trace of tricuspid valve regurgitation noted. Pulmonic Valve The pulmonary valve is normal in structure. There is trivial pulmonic valvular regurgitation. Great Vessels The aortic root is normal in size. The IVC is normal in size and collapses >50% with inspiration. Pericardium There is no pericardial effusion. Other Information Quality : Technically dfficult study due to body habitus Conclusion The left ventricle is normal size. The LVEF is > 55%. Stage I diastolic dysfunction. The right ventricle is normal size. The right ventricular systolic function is normal. The left atrium size is mildly dilated. The right atrium size is mildly dilated. Trace aortic regurgitation is present. There is no pericardial effusion.
--- NOTE | 2024-11-07 17:31 | PN ---
[facility] PROGRESS NOTE Date Patient Seen: Nov 07, 2024 Time of Visit: 17:28 Supervising Physician: VIRGINIA CHARLES Primary Care Physician: Dr. Yadira Chambers ] Outpatient Specialists: [Dr. Oscar-nephro, Dr. Uribe-cardiology] Inpatient Consults: [Dr. Oneal-wounds ] PROBLEM LIST: Syncope-POA BARBIE on CKD-POA Sinus bradycardia Hypertensive [id number]-GXF-krzjalwr Leukocytosis-POA, possibly reactive- no signs and symptoms of infectious process Traumatic fall-POA Wound laceration and cuts on nasal bridge, arms and legs with bruising on the chin resulted from the fall-POA HLD Asthma AJ PLAN: -Orthostatic BP q shift-REFUSING -Obtain 2decho- PDG RESULT - FOLLOW EEG ,NEURO AND CARDIO CONSULT -She will benefit in getting a continuous holter/Ziopatch monitoring, she follows-up with [facility]. [facility]- CONSULT CARDIO -Multimodal pain management -Consult wound MD concerning significant wounds on the arms and legs -PT/OT to eval andtreat INTERVAL HISTORY: Patient is seen and examined today by me at bedside, the patient was lying in bed with son and family in room. Extensive conversation regarding the patient's imaging studies were reviewed with the patient. We are pending CT scan of the head result, echocardiogram results and EEG. At this time she is refusing orthostatic blood pressure checks given significant pain due to her upper and lower extremity wounds. Fall mechanism is discussed with family and unclear as to how she was severely injured. Patient does live alone but son lives close by we did advise and family that she will require someone to be with her throughout her recovery process as they are declining SNF placement. At this time she is undergoing workup for syncope pending neuro and Cardiology consult. REVIEW OF SYSTEMS: 12 point ROS reviewed with patient. Pertinent positives mentioned above. Otherwise negative. PHYSICAL EXAM: GENERAL: alert, weak, awake oriented x 3 HEENT: EOMI, Sclera non icteric, dry mucosa, cuts on her nasal bridge and bruise on her chin NECK: Supple, no JVD, trachea midline LUNGS: Clear breath sounds bilaterally. No wheezes HEART: Regular rate and rhythm. Normal S1 and S2, without murmurs ABD: Abdomen soft, nontender. Bowel sounds present EXT: No clubbing cyanosis or edema, wounds and cuts in BUE and left leg with steristrips NEURO: Alert and oriented to person, follows commands Vital Signs (last 8hr) Date Time Temp Pulse Resp B/P (MAP) Pulse Ox O2 Delivery O2 Flow Rate FiO2 11/07/24 14:52 72 17 180/72 93 Room Air 11/07/24 13:52 63 18 N/A Room Air 21 11/07/24 12:50 63 19 11/07/24 11:50 68 17 160/69 92 Room Air 11/07/24 09:49 66 17 185/75 96 Room Air LABS: Hematology Labs: Test 11/06/24 13:30 Range/Units White Blood Count 14.3 H 4.8-10.8 K/uL Red Blood Count 3.87 L 4.00-5.50 MIL/uL Hemoglobin 12.1 12.0-16.0 g/dL Hematocrit 35.6 L 36-48 % Mean Corpuscular Volume 92.0 79-99 fL Mean Corpuscular Hemoglobin 31.3 27.0-33.0 pg Mean Corpuscular Hemoglobin Concent 34.0 32.0-36.0 g/dL Red Cell Distribution Width 12.7 11.0-15.5 % Platelet Count 202 130-400 K/uL Mean Platelet Volume 9.6 7.5-10.5 fL Immature Granulocyte % (Auto) 5.3 H 0-1 % Neutrophils (%) (Auto) 70.8 40.0-77.0 % Lymphocytes (%) (Auto) 15.2 L 21.0-51.0 % Monocytes (%) (Auto) 7.2 3.0-13.0 % Eosinophils (%) (Auto) 1.1 0.0-8.0 % Basophils (%) (Auto) 0.4 0.0-5.0 % Neutrophils # (Auto) 10.1 H 1.8-7.7 K/uL Lymphocytes # (Auto) 2.2 1.0-4.8 K/uL Monocytes # (Auto) 1.0 0.1-1.0 K/uL Eosinophils # (Auto) 0.15 0.00-0.70 K/uL Basophils # (Auto) 0.06 0.00-0.20 K/uL Absolute Immature Granulocyte (auto 0.75 0-1 K/uL Nucleated Red Blood Cells 0.0 0.0-0.19 % Chemistry Labs: Test 11/07/24 04:32 11/06/24 13:30 Range/Units Sodium Level 136 136-145 mmol/L Potassium Level 4.5 3.5-5.1 mmol/L Chloride Level 104 101-111 mmol/L Carbon Dioxide Level 22 21-32 mmol/L Blood Urea Nitrogen 41 H 7-18 mg/dL Creatinine 1.3 H 0.5-1.0 mg/dL Glomerular Filtration Rate Calc 40 >90 mL/min Random Glucose 132 H 70-105 mg/dL Total Calcium 8.2 L 8.5-10.1 mg/dL Phosphorus Level 3.3 2.5-4.9 mg/dL Magnesium Level 2.20 1.80-2.40 mg/dL Troponin I High Sensitivity 15 4-50 ng/L DIAGNOSTICS / RADIOLOGY RESULTS: [ ] PLAN NEURO: Minimize central acting medications as possible. Maintain fall precautions, adequate lighting during the day PULMONARY: Supplemental 02 as needed. Maintain aspiration precautions at all times CARDIOVASCULAR: Follow hemodynamics. Vital signs per facility protocol GI & NUTRITION: Continue with nutritional support. Continue stool softeners and laxatives as needed. KIDNEYS & ELECTROLYTES: Strict monitoring of intake, output and overall fluid balance. Avoid nephrotoxic medications to the extent possible. Medications to be dosed according to renal function. Monitor electrolytes and replace as needed ENDOCRINE: Maintain blood glucose between 100-180 at all times. Hypoglycemia protocol in place INFECTIOUS DISEASE: Trend temperature, WBC and procalcitonin level Follow cultures, deescalate antibiotics as soon as possible. Panculture if new onset fever ONCOLOGY/HEMATOLOGY/COAGULATION: Monitor for s/s of bleeding Monitor hemoglobin, coagulation studies as needed SKIN: Pressure ulcer prevention per facility protocol Specialty mattress ORTHO/REHAB: Continue PT/OT Prophylaxis: Continue GI and DVT prophylaxis Code Status: Full Resuscitation Disposition: Home TERRELL CARLOS Nov 07, 2024 17:31
--- NOTE | 2024-11-07 17:57 | HMCIMG ---
EXAM: CT Head Without Intravenous Contrast. CLINICAL HISTORY: Syncope. TECHNIQUE: Axial computed tomography images of the head/brain without intravenous contrast. Dose reduction technique was used including one or more of the following: automated exposure control, adjustment of mA and kV according to patient size, and/or iterative reconstruction. CONTRAST: NONE COMPARISON: CT Head compared to MR Brain dated 01/01/2021. FINDINGS: BRAIN: Moderate atrophy. Moderate chronic ischemic changes. Small bilateral basal ganglia calcifications. No acute intraparenchymal hemorrhage. No mass lesion. No CT evidence for acute territorial infarct. No midline shift or extra-axial collection. VENTRICLES: No hydrocephalus. ORBITS: The orbits are unremarkable. SINUSES AND MASTOIDS: The paranasal sinuses and mastoid air cells are clear. SOFT TISSUES: No significant facial or scalp soft tissue swelling evident. No radiopaque foreign body is seen. BONES: No acute skull fracture. IMPRESSION: 1. No acute intracranial abnormality. 2. Moderate atrophy and moderate chronic ischemic changes. 3. Small bilateral basal ganglia calcifications. /[place]
[2024-11-07] MEDS: amLODIPine 5 MG TAB PO SCH (20:28)
[2024-11-07] MEDS ORDERED: VANCOMYCIN 750MG VIAL IVPB SCH (23:00)
[2024-11-08] VITALS (12 sets, daily range): BP systolic 125–202; BP diastolic 54–89; PULSE 69–89; RESP 16–20; TEMP 98.2–99.1; O2SAT 93–97
[2024-11-08 03:52] LABS: IMMATURE GRANULOCYTE ABSOLUTE 0.28 K/uL (0-1); NUCLEATED RED BLOOD CELLS 0.0 % (0.0-0.19); PLATELET COUNT (AUTO) 167 K/uL (130-400); RED BLOOD CELL COUNT(AUTO) 3.33 MIL/uL (4.00-5.50); RED CELL DISTRIBUTION WIDTH 13.1 % (11.0-15.5); WHITE BLOOD COUNT (AUTO) 11.5 K/uL (4.8-10.8)
[2024-11-08 04:09] LABS: ASPARTATE AMINOTRANSFERASE 20.0 U/L (10-37); CREATININE 1.7 mg/dL (0.5-1.0); GLOMERULAR FILTR. RATE CALC 29.0 mL/min (>90); GLUCOSE,RANDOM 157.0 mg/dL (70-105); SODIUM SERUM 136.0 mmol/L (136-145); TOTAL PROTEIN, SERUM 5.1 g/dL (6.0-8.3); UREA NITROGEN, BLOOD 37.0 mg/dL (7-18)
[2024-11-08] MEDS: (Chlorthalidone 25 MG) PO SCH (09:00)
[2024-11-08] MEDS ORDERED: LIDOCAINE/PRILOCAINE CREAM 5GM TUBE TP PRN (09:00)
[2024-11-08] MEDS: FERROUS SULFATE 325 MG TABLET.DR PO SCH (09:00)
[2024-11-08] MEDS: Vitamin B Complex/Vit C/Folic Acid PO SCH (09:01)
[2024-11-08] MEDS: (Fluticasone/Umeclidin/Vilanter (Trelegy Ellipta 200-62.5-25MCG) IH SCH (09:56)
--- NOTE | 2024-11-08 12:54 | NUR ---
[facility] Follow-up: Patient re-assessed by wound healing team. See wound assessment. Assessment and recommendations provided to primary nurse. Education provided. Wound care done. Addendum: 11/08/24 at 1443 by BRIGITTE MOSLEY RN RN/ Amended: Links added.
[2024-11-08] MEDS: BACITRACIN 28.4 GM OINT TP SCH (13:19)
--- NOTE | 2024-11-08 16:50 | CONS ---
CONSULTATION NOTE Date of Service: Nov 08, 2024 Reason for Consultation: [ Multiple open wounds ] Requesting Physician: [ Dr. Tobin ] HISTORY OF PRESENT ILLNESS: Patient is being evaluated at bedside in room 401 for initial wound care consult. Patient's sister and nephew present during today's evaluation. Patient reports she sustained multiple skin tears to bilateral upper extremities and to her left knee when she had her syncopal episode day of admission. The patient is an 89-year-old female with a past medical history of multidrug resistant hypertension, hyperlipidemia with statin intolerance, normal stress perfusion with LVEF of 72% by Lexiscan Cardiolite stress test on 04/24/2019, LVEF of >65% via 2D echo on 12/03/2022, history of stage II diastolic dysfunction via 2D echo on 06/09/2019, CKD stage IIIb, asthma, chronic bronchitis, obstructive sleep apnea on CPAP therapy, venous insufficiency, PAD, and GERD who presented to the ED post syncopal episode. WBC on admission 11/06/2024 was elevated at 14.3. Urinalysis, chest x-ray, CT chest, bilateral carotid Doppler, and CT head were benign. Normal EEG on 11/07/2024. Patient was admitted for further medical management. REVIEW OF SYSTEMS CONSTITUTIONAL: Denies fever, chills, or fatigue. HEAD/FACE: No signs of trauma. EENT: Denies eye pain, blurred vision, double vision, or light sensitivity. RESPIRATORY: Denies shortness of breath, cough, wheezing CARDIOVASCULAR: Denies chest pain, palpitation, syncope GASTROINTESTINAL/ABDOMINAL: Denies abdominal pain, constipation, diarrhea, nausea or vomiting GENITOURINARY: Denies dysuria or hematuria. MUSCULOSKELETAL: Denies joint pain, tenderness, or trauma. INTEGUMENTARY: Denies rash or itchiness NEUROLOGICAL/PSYCH: Denies anxiety, depression, heat or cold intolerance. Past Medical History: As per HPI and summarized below Past Surgical History: Right TKA on 08/02/2013 Bilateral tubal ligation with subsequent hysterectomy Lipoma excision to the right knee Lateral repair Bilateral cataract surgery Right shoulder surgery Family History: Siblings have a positive medical history for diabetes mellitus type 2 and CAD. Social History: The patient lives alone. Habits: No alcohol, tobacco, or illicit drug use. Coded Allergies: aspirin (Unverified Allergy, Severe, SHORTNESS OF BREATH, 08/01/13) succinylcholine (Unverified Allergy, Severe, BECAME VERY RIGID, COULD NOT OPEN MOUTH, 08/01/13) pravastatin (Unverified Allergy, Intermediate, 03/03/21) Penicillins (Unverified Allergy, Unknown, GENERALIZED RASH, 08/01/13) acetaminophen (Unverified Allergy, Unknown, SHORTNESS OF BREATH, 12/04/14) WHEEZING ibuprofen (Unverified Allergy, Unknown, TRIGGERS ASTHMA, 08/01/13) propofol (Unverified Allergy, Unknown, 09/21/20) sulfamethoxazole (Unverified Allergy, Unknown, STOMACH PAIN, 08/01/13) trimethoprim (Unverified Allergy, Unknown, STOMACH PAIN, 08/01/13) PHYSICAL EXAM EYES: Anicteric. Pupils equal and reactive. HENT: No oral thrush seen, moist Oral mucosa NECK: Supple, no JVD or thyromegaly. LUNGS: Good air entry. No rales, no rhonchi. CARDIOVASCULAR: S1, S2 regular. No murmur heard. ABDOMEN: Soft, non tender, bowel sounds present, no organomegaly CENTRAL NERVOUS SYSTEM: Awake, alert, oriented x 3. No focal deficits. SKIN: Skin tear noted to right elbow, right upper arm, left upper arm and left knee noted with 100% granulated tissue with serous drainage and mild periwound erythema LYMPHATICS: No peripheral lymphadenopathy MUSCULOSKELETAL: No joint swelling, erythema or tenderness. EXTREMITIES: No cyanosis or clubbing BACK: No deformity, no pressure ulcer. GENITOURINARY: No dysuria or hematuria Vital Sign (Last 24 Hours) 11/07/24 11/08/24 11/08/24 20:25 06:37 16:00 Temp 98.6 Pulse 78 Resp 18 B/P (MAP) 125/65 Pulse Ox 94 O2 Delivery Room Air O2 Flow Rate 0 FiO2 21 Intake & Output (last 24hrs) 11/07/24 11/07/24 11/08/24 15:00 23:00 07:00 Output Total 500 ml 900 ml 500 ml Balance -500 ml -900 ml -500 ml LABS: Laboratory: Test 11/08/24 03:26 11/07/24 04:32 11/07/24 04:00 Range/Units White Blood Count 11.5 H 4.8-10.8 K/uL Red Blood Count 3.33 L 4.00-5.50 MIL/uL Hemoglobin 10.3 L 12.0-16.0 g/dL Hematocrit 30.3 L 36-48 % Mean Corpuscular Volume 91.0 79-99 fL Mean Corpuscular Hemoglobin 30.9 27.0-33.0 pg Mean Corpuscular Hemoglobin Concent 34.0 32.0-36.0 g/dL Red Cell Distribution Width 13.1 11.0-15.5 % Platelet Count 167 130-400 K/uL Mean Platelet Volume 9.5 7.5-10.5 fL Immature Granulocyte % (Auto) 2.4 H 0-1 % Neutrophils (%) (Auto) 75.3 40.0-77.0 % Lymphocytes (%) (Auto) 12.6 L 21.0-51.0 % Monocytes (%) (Auto) 8.4 3.0-13.0 % Eosinophils (%) (Auto) 1.0 0.0-8.0 % Basophils (%) (Auto) 0.3 0.0-5.0 % Neutrophils # (Auto) 8.6 H 1.8-7.7 K/uL Lymphocytes # (Auto) 1.4 1.0-4.8 K/uL Monocytes # (Auto) 1.0 0.1-1.0 K/uL Eosinophils # (Auto) 0.12 0.00-0.70 K/uL Basophils # (Auto) 0.03 0.00-0.20 K/uL Absolute Immature Granulocyte (auto 0.28 0-1 K/uL Nucleated Red Blood Cells 0.0 0.0-0.19 % Sodium Level 136 136-145 mmol/L Potassium Level 4.4 3.5-5.1 mmol/L Chloride Level 106 101-111 mmol/L Carbon Dioxide Level 26 21-32 mmol/L Blood Urea Nitrogen 37 H 7-18 mg/dL Creatinine 1.7 H 0.5-1.0 mg/dL Glomerular Filtration Rate Calc 29 >90 mL/min Random Glucose 157 H 70-105 mg/dL Total Calcium 7.8 L 8.5-10.1 mg/dL Magnesium Level 2.40 1.80-2.40 mg/dL Total Bilirubin 0.5 0.2-1.0 mg/dL Aspartate Amino Transf (AST/SGOT) 20 10-37 U/L Alanine Aminotransferase (ALT/SGPT) 22 12-78 U/L Alkaline Phosphatase 54 50-136 U/L Total Protein 5.1 L 6.0-8.3 g/dL Albumin 2.4 L 3.5-5.0 g/dL Phosphorus Level 3.3 2.5-4.9 mg/dL Influenza Type A Antigen Negative For Type A NEGATIVE Influenza Type B Antigen Negative For Type B NEGATIVE SARS-CoV-2 Antigen (Rapid) PRESUMPTIVE NEGATIVE NEGATIVE PROBLEM LIST : Medical Problems: Unspecified open wound to right elbow Unspecified open wound to right upper arm Unspecified open wound to left upper arm Unspecified open wound to left knee PLAN: Wound care to right elbow, right upper arm, left upper arm, and left knee- Cleanse with normal saline, pat dry, apply bacitracin ointment, cover with adaptic/Vaseline gauze, gauze, wrap with kerlix secure with tape change daily and prn Keep wounds clean and dry Offloading/reposition q 2 hours Comorbidities per primary care team Further Management per hospital course. Thank You for the consult and allowing us to participate in the care of this patient. ATTESTATION BY PHYSICIAN I have seen and examined the patient. I reviewed the documentation, medical decision making, and treatment plan as noted by the mid-level provider above. I agree with the findings and plan of care. ALICE CHERY MD, MICHELLE A NP Nov 08, 2024 16:50 ALICE CHERY MD Nov 20, 2024 14:33
[2024-11-08 20:03] LABS: AMPHET/METH SCREEN,URINE NEGATIVE (NEGATIVE); BARBITURATE SCREEN, URINE NEGATIVE (NEGATIVE); CANNABINOID SCREEN,URINE NEGATIVE (NEGATIVE); COCAINE SCREEN,URINE NEGATIVE (NEGATIVE)
--- NOTE | 2024-11-08 23:32 | PN ---
[facility] PROGRESS NOTE Date Patient Seen: Nov 08, 2024 Time of Visit: 23:30 Supervising Physician: [place] Primary Care Physician: Dr. Yadira Chambers ] Outpatient Specialists: [Dr. Oscar-nephro, Dr. Uribe-cardiology] Inpatient Consults: [Dr. Oneal-wounds ] PROBLEM LIST: Syncope and Collapse , POA BARBIE on CKD-POA Sinus bradycardia Hypertensive vpvwnik-HSE-sbegpjvy Leukocytosis-POA, possibly reactive- no signs and symptoms of infectious process Mulitple Wounds laceration and cuts on nasal bridge, arms and legs with bruising on the chin ,POA HLD Asthma AJ PLAN: -Orthostatic BP q shift-REFUSING - FOLLOW EEG ,NEURO AND CARDIO CONSULT -She will benefit in getting a continuous holter she follows-[facility] with [facility]- CONSULT CARDIO -Multimodal pain management -Consult wound MD concerning significant wounds on the arms and legs, will contineu to monitor outpatient -PT/OT to eval andtreat INTERVAL HISTORY: Patient is seen and examined today by me at bedside, the patient was lying in bed with son and family in room. Extensive conversation regarding the patient's imaging studies were reviewed with the patient. We are pending CT scan of the head result, echocardiogram results and EEG. At this time she is refusing orthostatic blood pressure checks given significant pain due to her upper and lower extremity wounds. Fall mechanism is discussed with family and unclear as to how she was severely injured. Patient does live alone but son lives close by we did advise and family that she will require someone to be with her throughout her recovery process as they are declining SNF placement. At this time she is undergoing workup for syncope pending neuro and Cardiology consult. REVIEW OF SYSTEMS: 12 point ROS reviewed with patient. Pertinent positives mentioned above. Otherwise negative. PHYSICAL EXAM: GENERAL: alert, weak, awake oriented x 3 HEENT: EOMI, Sclera non icteric, dry mucosa, cuts on her nasal bridge and bruise on her chin NECK: Supple, no JVD, trachea midline LUNGS: Clear breath sounds bilaterally. No wheezes HEART: Regular rate and rhythm. Normal S1 and S2, without murmurs ABD: Abdomen soft, nontender. Bowel sounds present EXT: No clubbing cyanosis or edema, wounds and cuts in BUE and left leg with steristrips NEURO: Alert and oriented to person, follows commands Vital Signs (last 8hr) Date Time Temp Pulse Resp B/P (MAP) Pulse Ox O2 Delivery O2 Flow Rate FiO2 11/08/24 20:37 173/64 11/08/24 20:00 98.2 70 20 173/64 93 Room Air 11/08/24 19:49 75 19 11/08/24 18:35 78 18 N/A Room Air 21 11/08/24 16:00 98.6 78 18 125/65 94 Room Air LABS: Hematology Labs: Test 11/08/24 03:26 Range/Units White Blood Count 11.5 H 4.8-10.8 K/uL Red Blood Count 3.33 L 4.00-5.50 MIL/uL Hemoglobin 10.3 L 12.0-16.0 g/dL Hematocrit 30.3 L 36-48 % Mean Corpuscular Volume 91.0 79-99 fL Mean Corpuscular Hemoglobin 30.9 27.0-33.0 pg Mean Corpuscular Hemoglobin Concent 34.0 32.0-36.0 g/dL Red Cell Distribution Width 13.1 11.0-15.5 % Platelet Count 167 130-400 K/uL Mean Platelet Volume 9.5 7.5-10.5 fL Immature Granulocyte % (Auto) 2.4 H 0-1 % Neutrophils (%) (Auto) 75.3 40.0-77.0 % Lymphocytes (%) (Auto) 12.6 L 21.0-51.0 % Monocytes (%) (Auto) 8.4 3.0-13.0 % Eosinophils (%) (Auto) 1.0 0.0-8.0 % Basophils (%) (Auto) 0.3 0.0-5.0 % Neutrophils # (Auto) 8.6 H 1.8-7.7 K/uL Lymphocytes # (Auto) 1.4 1.0-4.8 K/uL Monocytes # (Auto) 1.0 0.1-1.0 K/uL Eosinophils # (Auto) 0.12 0.00-0.70 K/uL Basophils # (Auto) 0.03 0.00-0.20 K/uL Absolute Immature Granulocyte (auto 0.28 0-1 K/uL Nucleated Red Blood Cells 0.0 0.0-0.19 % Chemistry Labs: Test 11/08/24 03:26 9/16/25 04:32 Range/Units Sodium Level 136 136-145 mmol/L Potassium Level 4.4 3.5-5.1 mmol/L Chloride Level 106 101-111 mmol/L Carbon Dioxide Level 26 21-32 mmol/L Blood Urea Nitrogen 37 H 7-18 mg/dL Creatinine 1.7 H 0.5-1.0 mg/dL Glomerular Filtration Rate Calc 29 >90 mL/min Random Glucose 157 H 70-105 mg/dL Total Calcium 7.8 L 8.5-10.1 mg/dL Magnesium Level 2.40 1.80-2.40 mg/dL Total Bilirubin 0.5 0.2-1.0 mg/dL Aspartate Amino Transf (AST/SGOT) 20 10-37 U/L Alanine Aminotransferase (ALT/SGPT) 22 12-78 U/L Alkaline Phosphatase 54 50-136 U/L Total Protein 5.1 L 6.0-8.3 g/dL Albumin 2.4 L 3.5-5.0 g/dL Phosphorus Level 3.3 2.5-4.9 mg/dL DIAGNOSTICS / RADIOLOGY RESULTS: Echo conclusion The left ventricle is normal size. The LVEF is > 55%. Stage I diastolic dysfunction. The right ventricle is normal size. The right ventricular systolic function is normal. The left atrium size is mildly dilated. The right atrium size is mildly dilated. Trace aortic regurgitation is present. There is no pericardial effusion. PLAN NEURO: Minimize central acting medications as possible. Maintain fall precautions, adequate lighting during the day PULMONARY: Supplemental 02 as needed. Maintain aspiration precautions at all times CARDIOVASCULAR: Follow hemodynamics. Vital signs per facility protocol GI & NUTRITION: Continue with nutritional support. Continue stool softeners and laxatives as needed. KIDNEYS & ELECTROLYTES: Strict monitoring of intake, output and overall fluid balance. Avoid nephrotoxic medications to the extent possible. Medications to be dosed according to renal function. Monitor electrolytes and replace as needed ENDOCRINE: Maintain blood glucose between 100-180 at all times. Hypoglycemia protocol in place INFECTIOUS DISEASE: Trend temperature, WBC and procalcitonin level Follow cultures, deescalate antibiotics as soon as possible. Panculture if new onset fever ONCOLOGY/HEMATOLOGY/COAGULATION: Monitor for s/s of bleeding Monitor hemoglobin, coagulation studies as needed SKIN: Pressure ulcer prevention per facility protocol Specialty mattress ORTHO/REHAB: Continue PT/OT Prophylaxis: Continue GI and DVT prophylaxis Code Status: Full Resuscitation Disposition: Home TERRELL CARLOS Nov 08, 2024 23:32
[2024-11-09] VITALS (13 sets, daily range): BP systolic 143–191; BP diastolic 56–89; PULSE 64–81; RESP 16–20; TEMP 97.6–98.3; O2SAT 96–97
[2024-11-09 03:48] LABS: IMMATURE GRANULOCYTE ABSOLUTE 0.30 K/uL (0-1); NUCLEATED RED BLOOD CELLS 0.0 % (0.0-0.19); PLATELET COUNT (AUTO) 173 K/uL (130-400); RED BLOOD CELL COUNT(AUTO) 3.45 MIL/uL (4.00-5.50); RED CELL DISTRIBUTION WIDTH 13.1 % (11.0-15.5); WHITE BLOOD COUNT (AUTO) 11.6 K/uL (4.8-10.8)
[2024-11-09 04:03] LABS: ASPARTATE AMINOTRANSFERASE 20.0 U/L (10-37); CREATININE 1.3 mg/dL (0.5-1.0); GLOMERULAR FILTR. RATE CALC 40.0 mL/min (>90); GLUCOSE,RANDOM 127.0 mg/dL (70-105); SODIUM SERUM 137.0 mmol/L (136-145); TOTAL PROTEIN, SERUM 5.4 g/dL (6.0-8.3); UREA NITROGEN, BLOOD 32.0 mg/dL (7-18)
--- NOTE | 2024-11-09 08:14 | NUR ---
pt up out of bed at 0630 sitting in chair pt tolerated well.
--- NOTE | 2024-11-09 12:51 | CONS ---
[facility]IOLOG[facility] CONSULTATION REPORT Cardiology consultation note dictated for Andres Goetz MD Primary lead presser: Miguel Uribe MD Date Patient Seen: Nov 09, 2024 Requesting Physician: JOSE Caldwell Reason for Consultation: Syncope History of Present Illness: This is an 89-year-old female with a past medical history of multidrug resistant hypertension, hyperlipidemia with statin intolerance, normal stress perfusion with LVEF of 72% by Lexiscan Cardiolite stress test on 04/24/2019, LVEF of >65% via 2D echo on 12/03/2022, history of stage II diastolic dysfunction via 2D echo on 06/09/2019, CKD stage IIIb, asthma, chronic bronchitis, obstructive sleep apnea on CPAP therapy, venous insufficiency, PAD, and GERD who presented to the ED post syncopal episode. WBC on admission 11/06/2024 was elevated at 14.3. Urinalysis, chest x-ray, CT chest, bilateral carotid Doppler, and CT head were benign. Normal EEG on 11/07/2024. Cardiology has been consulted for syncope. The patient states she was standing and drank some water when she began to choke. She then recalls waking up on the floor and thinks she lost consciousness for a short period. She denies dizziness prior to episode, postictal confusion, and urine or bowel elimination. She sustained facial trauma, multiple skin tears to bilateral upper extremities and to her left knee. The patient has refused orthostatic vital signs. 2D echo on 11/07/2024 with an LVEF of >55% with grade 1 diastolic dysfunction. Blood pressure on admission of 219/72 mmHg. The patient's home blood pressure medications were held and she has been started on a lower dose of carvedilol at 6.25 mg b.i.d. and continued on amlodipine 5 mg b.i.d.. The patient's chlorthalidone 25 mg daily is non formulary and has not received any doses. She is to start on hydralazine 25 mg t.i.d. today. The patient is no longer on telemetry monitoring. Telemetry strips in the chart reveal NSR with no blocks or arrhythmias. Cardiac enzyme negative x1. EKG on admission demonstrated NSR with a hr of 58bpm, no acute ischemia noted. Past Medical History: As per HPI and summarized below Past Surgical History: Right TKA on 08/02/2013 Bilateral tubal ligation with subsequent hysterectomy Lipoma excision to the right knee Lateral repair Bilateral cataract surgery Right shoulder surgery Family History: Siblings have a positive medical history for diabetes mellitus type 2 and CAD. Social History: The patient lives alone. Habits: No alcohol, tobacco, or illicit drug use. Home Meds: Amlodipine 5 mg b.i.d. Carvedilol 25 mg b.i.d. Chlorthalidone 25 mg daily Vitamin D3 1000 units daily Ferrous sulfate 325 mg daily Nephro-Brenden vitamin daily ProAir HFA 0.8 g inhaled every 6 hours p.r.n. Trelegy Ellipta 200-62.5-20 mg inhaled daily Singulair 10 mg daily Cetirizine 10 mg daily Current Meds: Medications Dose Ordered Sig/Imelda Start Time Stop Time Status Last Admin Albuterol Sulfate 2.5 mg [id number] PRN 11/06/24 15:00 12/06/24 14:59 11/08/24 19:49 Sodium Chloride 1,000 ml @ 75 mls/hr [id number] 11/06/24 15:00 12/06/24 14:59 11/09/24 04:11 Pantoprazole Sodium 40 mg DAILY 11/07/24 09:00 12/07/24 08:59 11/09/24 08:07 Enoxaparin Sodium 30 mg DAILY 11/07/24 09:00 12/07/24 08:59 11/09/24 08:08 Lactulose 20 gm Q6H PRN 11/06/24 15:00 12/06/24 14:59 Docusate Sodium 100 mg BID PRN 11/06/24 15:00 12/06/24 14:59 Ondansetron HCl 4 mg Q6H PRN 11/06/24 15:00 12/06/24 14:59 11/06/24 17:02 Clonidine HCl 0.1 mg Q6H PRN 11/06/24 15:00 12/06/24 14:59 11/09/24 07:00 Hydralazine HCl 10 mg Q6H PRN 11/06/24 15:00 12/06/24 14:59 11/09/24 03:36 Acetaminophen 650 mg Q6H PRN 11/06/24 18:30 12/06/24 18:29 11/07/24 13:16 Lidocaine 1 patch DAILY 11/06/24 19:00 12/06/24 18:59 11/09/24 08:08 Hydromorphone HCl 0.2 mg Q4H PRN 11/07/24 10:30 11/12/24 10:29 11/08/24 11:10 Amlodipine Besylate 5 mg BID 11/07/24 21:00 12/07/24 20:59 11/09/24 08:08 Montelukast Sodium 10 mg DAILYBKFST 11/08/24 08:00 12/08/24 07:59 11/09/24 08:07 Cetirizine HCl 10 mg DAILY 11/08/24 09:00 12/08/24 08:59 11/09/24 08:07 Home Med (Chlorthalidone 25 MG) DAILY 11/08/24 09:00 12/08/24 08:59 Ferrous Sulfate 325 mg DAILY 11/08/24 09:00 12/08/24 08:59 11/09/24 08:07 Home Med (Fluticasone/ Umeclidin/ Vilan... DAILY 11/08/24 09:00 12/08/24 08:59 11/09/24 08:09 Vitamin B Complex/ Vit C/Folic Acid 1 cap DAILY 11/08/24 09:00 12/08/24 08:59 11/09/24 08:07 Tramadol HCl 50 mg Q8H PRN 11/07/24 13:30 11/12/24 13:29 11/08/24 20:58 Bacitracin apply to right elb... DAILY 11/08/24 09:00 12/08/24 08:59 11/09/24 08:09 Lidocaine/ Prilocaine 1 APPL DAILYPRN PRN 11/08/24 09:00 12/08/24 08:59 Carvedilol 6.25 mg BID 11/08/24 21:00 12/08/24 20:59 11/09/24 08:07 Gabapentin 100 mg BID 11/09/24 21:00 12/09/24 20:59 Hydralazine HCl 25 mg TID 11/09/24 14:00 12/09/24 13:59 Review of Systems: CONST: No fever, fatigue, or weight changes. EYES: No recent vision problems. ENT: No congestion, ear pain, or sore throat. C/V: No chest pain or palpitations. Admits to bilateral lower extremity edema. RESP: No cough, congestion, wheezing or shortness of breath. GI: No abdominal pain, nausea, vomiting, constipation, or diarrhea. : No incontinence or dysuria. SKIN: Admits to skin tears to bilateral upper extremities and left knee NEURO: No headache, focal numbness or weakness, dizziness, or seizures. PSYCH: No depression or anxiety. HEME: No abnormal bruising or bleeding. LYMPH: No swollen glands. Physical Examination: GENERAL: No acute distress. HEAD: Bruising to the nasal bridge and left chin. EYES: Conjunctiva and sclera normal. ENT: Hearing grossly intact, normal oropharynx. NECK: Supple without JVD. Normal carotid upstrokes without bruits. LUNGS: Clear breath sounds bilaterally. No wheezes, or rhonchi. HEART: Normal rate and rhythm. Normal S1 and S2 without murmurs, gallop or rub. VASC: BLE with 2+ edema. ABD: Bowel sounds normal, soft, nontender, no masses, no organomegaly. No audible bruits. : Not examined LYMPH: No lymphadenopathy noted. EXT: BUE with bandages over skin tears. Left knee with bandage over skin tear. SKIN: No rashes or lesions noted. NEURO: Awake, alert, and oriented x3. No focal sensory or strength deficits noted. Vital Signs (last 8hr) Date Time Temp Pulse Resp B/P (MAP) Pulse Ox O2 Delivery O2 Flow Rate FiO2 11/09/24 11:55 97.9 64 18 149/56 94 Room Air 11/09/24 08:20 73 18 N/A Room Air 21 11/09/24 08:07 163/75 11/09/24 08:00 97.5 81 18 163/75 96 Room Air 11/09/24 07:00 81 163/75 11/09/24 05:00 78 173/63 Room Air Laboratory: Hematology Labs: Test 11/09/24 03:18 Range/Units White Blood Count 11.6 H 4.8-10.8 K/uL Red Blood Count 3.45 L 4.00-5.50 MIL/uL Hemoglobin 10.6 L 12.0-16.0 g/dL Hematocrit 32.4 L 36-48 % Mean Corpuscular Volume 93.9 79-99 fL Mean Corpuscular Hemoglobin 30.7 27.0-33.0 pg Mean Corpuscular Hemoglobin Concent 32.7 32.0-36.0 g/dL Red Cell Distribution Width 13.1 11.0-15.5 % Platelet Count 173 130-400 K/uL Mean Platelet Volume 9.4 7.5-10.5 fL Immature Granulocyte % (Auto) 2.6 H 0-1 % Neutrophils (%) (Auto) 75.4 40.0-77.0 % Lymphocytes (%) (Auto) 12.8 L 21.0-51.0 % Monocytes (%) (Auto) 7.9 3.0-13.0 % Eosinophils (%) (Auto) 1.0 0.0-8.0 % Basophils (%) (Auto) 0.3 0.0-5.0 % Neutrophils # (Auto) 8.7 H 1.8-7.7 K/uL Lymphocytes # (Auto) 1.5 1.0-4.8 K/uL Monocytes # (Auto) 0.9 0.1-1.0 K/uL Eosinophils # (Auto) 0.12 0.00-0.70 K/uL Basophils # (Auto) 0.04 0.00-0.20 K/uL Absolute Immature Granulocyte (auto 0.30 0-1 K/uL Nucleated Red Blood Cells 0.0 0.0-0.19 % Chemistry Labs: Test 11/09/24 03:18 Range/Units Sodium Level 137 136-145 mmol/L Potassium Level 4.4 3.5-5.1 mmol/L Chloride Level 105 101-111 mmol/L Carbon Dioxide Level 24 21-32 mmol/L Blood Urea Nitrogen 32 H 7-18 mg/dL Creatinine 1.3 H 0.5-1.0 mg/dL Glomerular Filtration Rate Calc 40 >90 mL/min Random Glucose 127 H 70-105 mg/dL Total Calcium 8.0 L 8.5-10.1 mg/dL Magnesium Level 2.50 H 1.80-2.40 mg/dL Total Bilirubin 0.6 0.2-1.0 mg/dL Aspartate Amino Transf (AST/SGOT) 20 10-37 U/L Alanine Aminotransferase (ALT/SGPT) 23 12-78 U/L Alkaline Phosphatase 54 50-136 U/L Total Protein 5.4 L 6.0-8.3 g/dL Albumin 2.5 L 3.5-5.0 g/dL Diagnostics / Radiology: 2D echocardiogram on 11/07/2024 Conclusion The left ventricle is normal size. The LVEF is > 55%. Stage I diastolic dysfunction. The right ventricle is normal size. The right ventricular systolic function is normal. The left atrium size is mildly dilated. The right atrium size is mildly dilated. Trace aortic regurgitation is present. There is no pericardial effusion. DICTATED BY: THANG GOETZ MD DATE: 11/07/24 0849 Impression and Plan: Syncope Hypertensive urgency Leukocytosis Normocytic normochromic anemia Multidrug resistant hypertension Hyperlipidemia with statin intolerance Normal stress perfusion with LVEF of 72% by Lexiscan Cardiolite stress test on 04/24/2019 LVEF of >65% via 2D echo on 12/03/2022 History of stage II diastolic dysfunction via 2D echo on 06/09/2019 CKD stage IIIb Asthma Chronic bronchitis Obstructive sleep apnea on CPAP therapy Venous insufficiency PAD GERD Syncope 2D echo on 11/07/2024 with an LVEF of >55% with grade 1 diastolic dysfunction -The patient has been refusing orthostatic vital signs but currently has agreed, pending orthostatic vital signs -Continuous telemetry monitoring Hypertensive urgency Blood pressure on admission of 219/72 mmHg -Continue Carvedilol 6.25 mg b.i.d., Amlodipine 5 mg b.i.d., and newly added Hydralazine 25 mg t.i.d., assess BP response an up titrate as needed -The patient's chlorthalidone 25 mg daily is non formulary and has not received any doses. KENDAL RODRÍGUEZ [facility] Nov 09, 2024 12:51
--- NOTE | 2024-11-09 13:59 | HMCIMG ---
CHEST 1VW REASON: sob COMPARISON: Prior study from 11/06/2024 is available. FINDINGS: Single view of the chest was obtained. Lungs are clear. There is uncoiling atherosclerotic change of thoracic aorta. Heart size is normal. There is no pulmonary vascular congestion. Mediastinum and bony thorax appear unremarkable. There is ORIF of the left humerus with orthopedic plate and screw multiple screws in place. IMPRESSION: 1. No acute cardiopulmonary process and unchanged from prior study.
--- NOTE | 2024-11-09 15:14 | PN ---
[facility] PROGRESS NOTE Date Patient Seen: Nov 09, 2024 Time of Visit: 15:12 Supervising Physician: JODY Primary Care Physician: Dr. Yadira Chambers ] Outpatient Specialists: [Dr. Oscar-nephro, Dr. Uribe-cardiology] Inpatient Consults: [Dr. Oneal-wounds ] PROBLEM LIST: Syncope and Collapse , POA BARBIE on CKD-POA Sinus bradycardia Hypertensive frsjwpk-JWA-zbfxcfpe Leukocytosis-POA, possibly reactive- no signs and symptoms of infectious process Mulitple Wounds laceration and cuts on nasal bridge, arms and legs with bruising on the chin ,POA HLD Asthma AJ PLAN: -Orthostatic BP q shift-REFUSING - FOLLOW EEG ,NEURO AND CARDIO CONSULT -She will benefit in getting a continuous holter she follows-up with Dr. Uribe [facility]- CONSULT CARDIO -Multimodal pain management - Optimize BP medications -Consult wound MD concerning significant wounds on the arms and legs, will contineu to monitor outpatient -PT/OT to eval and treat INTERVAL HISTORY: Patient is seen and examined today by me at bedside, the patient was lying in bed with son and family in room. She was able to sit up to chair today with PT, feels much improved. Reports no dizziness. Patient does live alone but son lives close by we did advise and family that she will require someone to be with her throughout her recovery process as they are declining SNF placement. At this time she is undergoing workup for syncope pending neuro and Cardiology consult. BP continues uncontrolled We did stop Carvedilol and have gradually resuemd it as bradycardia has resolved. Will start at 6.125 mg bid and monitor. REVIEW OF SYSTEMS: 12 point ROS reviewed with patient. Pertinent positives mentioned above. Otherwise negative. PHYSICAL EXAM: GENERAL: alert, weak, awake oriented x 3 HEENT: EOMI, Sclera non icteric, dry mucosa, cuts on her nasal bridge and bruise on her chin NECK: Supple, no JVD, trachea midline LUNGS: Clear breath sounds bilaterally. No wheezes HEART: Regular rate and rhythm. Normal S1 and S2, without murmurs ABD: Abdomen soft, nontender. Bowel sounds present EXT: No clubbing cyanosis or edema, wounds and cuts in BUE and left leg with steristrips NEURO: Alert and oriented to person, follows commands Vital Signs (last 8hr) Date Time Temp Pulse Resp B/P (MAP) Pulse Ox O2 Delivery O2 Flow Rate FiO2 11/09/24 11:55 97.9 64 18 149/56 94 Room Air 11/09/24 08:20 73 18 N/A Room Air 21 11/09/24 08:07 163/75 11/09/24 08:00 97.5 81 18 163/75 96 Room Air LABS: Hematology Labs: Test 11/09/24 03:18 Range/Units White Blood Count 11.6 H 4.8-10.8 K/uL Red Blood Count 3.45 L 4.00-5.50 MIL/uL Hemoglobin 10.6 L 12.0-16.0 g/dL Hematocrit 32.4 L 36-48 % Mean Corpuscular Volume 93.9 79-99 fL Mean Corpuscular Hemoglobin 30.7 27.0-33.0 pg Mean Corpuscular Hemoglobin Concent 32.7 32.0-36.0 g/dL Red Cell Distribution Width 13.1 11.0-15.5 % Platelet Count 173 130-400 K/uL Mean Platelet Volume 9.4 7.5-10.5 fL Immature Granulocyte % (Auto) 2.6 H 0-1 % Neutrophils (%) (Auto) 75.4 40.0-77.0 % Lymphocytes (%) (Auto) 12.8 L 21.0-51.0 % Monocytes (%) (Auto) 7.9 3.0-13.0 % Eosinophils (%) (Auto) 1.0 0.0-8.0 % Basophils (%) (Auto) 0.3 0.0-5.0 % Neutrophils # (Auto) 8.7 H 1.8-7.7 K/uL Lymphocytes # (Auto) 1.5 1.0-4.8 K/uL Monocytes # (Auto) 0.9 0.1-1.0 K/uL Eosinophils # (Auto) 0.12 0.00-0.70 K/uL Basophils # (Auto) 0.04 0.00-0.20 K/uL Absolute Immature Granulocyte (auto 0.30 0-1 K/uL Nucleated Red Blood Cells 0.0 0.0-0.19 % Chemistry Labs: Test 11/09/24 03:18 Range/Units Sodium Level 137 136-145 mmol/L Potassium Level 4.4 3.5-5.1 mmol/L Chloride Level 105 101-111 mmol/L Carbon Dioxide Level 24 21-32 mmol/L Blood Urea Nitrogen 32 H 7-18 mg/dL Creatinine 1.3 H 0.5-1.0 mg/dL Glomerular Filtration Rate Calc 40 >90 mL/min Random Glucose 127 H 70-105 mg/dL Total Calcium 8.0 L 8.5-10.1 mg/dL Magnesium Level 2.50 H 1.80-2.40 mg/dL Total Bilirubin 0.6 0.2-1.0 mg/dL Aspartate Amino Transf (AST/SGOT) 20 10-37 U/L Alanine Aminotransferase (ALT/SGPT) 23 12-78 U/L Alkaline Phosphatase 54 50-136 U/L Total Protein 5.4 L 6.0-8.3 g/dL Albumin 2.5 L 3.5-5.0 g/dL DIAGNOSTICS / RADIOLOGY RESULTS: [ ] PLAN NEURO: Minimize central acting medications as possible. Maintain fall precautions, adequate lighting during the day PULMONARY: Supplemental 02 as needed. Maintain aspiration precautions at all times CARDIOVASCULAR: Follow hemodynamics. Vital signs per facility protocol GI & NUTRITION: Continue with nutritional support. Continue stool softeners and laxatives as needed. KIDNEYS & ELECTROLYTES: Strict monitoring of intake, output and overall fluid balance. Avoid nephrotoxic medications to the extent possible. Medications to be dosed according to renal function. Monitor electrolytes and replace as needed ENDOCRINE: Maintain blood glucose between 100-180 at all times. Hypoglycemia protocol in place INFECTIOUS DISEASE: Trend temperature, WBC and procalcitonin level Follow cultures, deescalate antibiotics as soon as possible. Panculture if new onset fever ONCOLOGY/HEMATOLOGY/COAGULATION: Monitor for s/s of bleeding Monitor hemoglobin, coagulation studies as needed SKIN: Pressure ulcer prevention per facility protocol Specialty mattress ORTHO/REHAB: Continue PT/OT Prophylaxis: Continue GI and DVT prophylaxis Code Status: Full Resuscitation Disposition: Home TERRELL CARLOS Nov 09, 2024 15:14
--- NOTE | 2024-11-09 15:19 | NUR ---
ORTHOSTATIC VITAL SIGNS 1500 Lyin/69, P: 66 1505 Sittin/89, P: 68 1510 Standin/89, P: 72
--- NOTE | 2024-11-09 16:15 | NUR ---
SPEECH TRIGGER COMPLETED / SYNCOPE Pt IS AN 89 Y.O. FEMALE ADMITTED SECONDARY TO SYNCOPE. Pt HAS A PAST MEDICAL HISTORY SIGNIFICANT FOR HTN, BRADYCARDIA, HLD, ASTHMA, AJ, AND CKD. PATIENT PRESENTED WITH NO PULMONARY INFILTRATES ON MOST RECENT CHEST X-RAY (11/09/2024). Pt CURRENTLY ON HEART HEALTHY DIET (REGULAR TEXTURE AND THIN LIQUIDS). PER NURSE ELIZALDE, Pt TOLERATING DIET WITH NO OVERT S/S OF ASPIRATION. PLEASE REQUEST SPEECH THERAPY SERVICES FOR SKILLED BEDSIDE SWALLOW EVALUATION IF Pt PRESENTS WITH +S/S OF ASPIRATION SUCH COUGH RESPONSE, THROAT CLEAR, OR WET VOCAL QUALITY DURING ORAL INTAKE. ALL QUESTIONS ANSWERED AT THIS TIME. Addendum: 11/09/[address] [facility]AYDE Amended: Links added.
[2024-11-10 03:34] VITALS: BP 157/66; PULSE 72; RESP 16; TEMP 98
[2024-11-10 04:26] LABS: IMMATURE GRANULOCYTE ABSOLUTE 0.23 K/uL (0-1); NUCLEATED RED BLOOD CELLS 0.0 % (0.0-0.19); PLATELET COUNT (AUTO) 190 K/uL (130-400); RED BLOOD CELL COUNT(AUTO) 3.30 MIL/uL (4.00-5.50); RED CELL DISTRIBUTION WIDTH 13.1 % (11.0-15.5); WHITE BLOOD COUNT (AUTO) 9.6 K/uL (4.8-10.8)
[2024-11-10 04:37] LABS: ASPARTATE AMINOTRANSFERASE 16.0 U/L (10-37); CREATININE 1.3 mg/dL (0.5-1.0); GLOMERULAR FILTR. RATE CALC 40.0 mL/min (>90); GLUCOSE,RANDOM 130.0 mg/dL (70-105); SODIUM SERUM 136.0 mmol/L (136-145); TOTAL PROTEIN, SERUM 5.2 g/dL (6.0-8.3); UREA NITROGEN, BLOOD 39.0 mg/dL (7-18)
[2024-11-10 07:33] VITALS: PULSE 83; RESP 18; O2SAT 97
[2024-11-10 08:00] VITALS: BP_SYST 157; BP_SYST 160; BP_SYST 169; BP_DIAS 65; BP_DIAS 74; BP_DIAS 78; PULSE 67; PULSE 77; PULSE 83; RESP 18; TEMP 98.3; O2SAT 96
[2024-11-10 12:09] VITALS: BP 165/72; PULSE 74; RESP 20; TEMP 98
--- NOTE | 2024-11-10 14:26 | NUR ---
[facility] Follow-up: Patient re-assessed by wound healing team. Assessment and recommendations provided to primary nurse. Education provided. Wound care done. Addendum: 11/10/24 at 1657 by BRIGITTE MOSLEY RN RN/ Amended: Links added.
[2024-11-10] MEDS ORDERED: GABA100C PO (14:48)
[2024-11-10] MEDS ORDERED: CARV6.2579 PO (14:48)
[2024-11-10] MEDS ORDERED: Isosorbide Mono 30MG Sr Tab PO (14:48)
[2024-11-10] MEDS ORDERED: HYDR25 PO (14:48)
--- NOTE | 2024-11-10 15:10 | PN ---
[facility] CARDIOLOGY PROGRESS NOTE Date Patient Seen: Nov 10, 2024 Time of Visit: 15:05 Interval History: [ No acute events overnight , orthostatics have been negative, no telemetry events noted. Currently denies any cardiac symptoms or anginal equivalents ] Physical Examination: GENERAL: No acute distress. HEAD: Bruising to the nasal bridge and left chin. EYES: Conjunctiva and sclera normal. ENT: Hearing grossly intact, normal oropharynx. NECK: Supple without JVD. Normal carotid upstrokes without bruits. LUNGS: Clear breath sounds bilaterally. No wheezes, or rhonchi. HEART: Normal rate and rhythm. Normal S1 and S2 without murmurs, gallop or rub. VASC: BLE with 2+ edema. ABD: Bowel sounds normal, soft, nontender, no masses, no organomegaly. No audible bruits. : Not examined LYMPH: No lymphadenopathy noted. EXT: BUE with bandages over skin tears. Left knee with bandage over skin tear. SKIN: No rashes or lesions noted. NEURO: Awake, alert, and oriented x3. No focal sensory or strength deficits noted. Laboratory: [ ] Hematology Labs: Test 11/10/24 03:50 Range/Units White Blood Count 9.6 4.8-10.8 K/uL Red Blood Count 3.30 L 4.00-5.50 MIL/uL Hemoglobin 10.3 L 12.0-16.0 g/dL Hematocrit 30.1 L 36-48 % Mean Corpuscular Volume 91.2 79-99 fL Mean Corpuscular Hemoglobin 31.2 27.0-33.0 pg Mean Corpuscular Hemoglobin Concent 34.2 32.0-36.0 g/dL Red Cell Distribution Width 13.1 11.0-15.5 % Platelet Count 190 130-400 K/uL Mean Platelet Volume 9.3 7.5-10.5 fL Immature Granulocyte % (Auto) 2.4 H 0-1 % Neutrophils (%) (Auto) 74.0 40.0-77.0 % Lymphocytes (%) (Auto) 15.2 L 21.0-51.0 % Monocytes (%) (Auto) 7.0 3.0-13.0 % Eosinophils (%) (Auto) 1.0 0.0-8.0 % Basophils (%) (Auto) 0.4 0.0-5.0 % Neutrophils # (Auto) 7.1 1.8-7.7 K/uL Lymphocytes # (Auto) 1.5 1.0-4.8 K/uL Monocytes # (Auto) 0.7 0.1-1.0 K/uL Eosinophils # (Auto) 0.10 0.00-0.70 K/uL Basophils # (Auto) 0.04 0.00-0.20 K/uL Absolute Immature Granulocyte (auto 0.23 0-1 K/uL Nucleated Red Blood Cells 0.0 0.0-0.19 % Chemistry Labs: Test 11/10/24 03:50 11/09/24 03:18 Range/Units Sodium Level 136 136-145 mmol/L Potassium Level 5.1 3.5-5.1 mmol/L Chloride Level 105 101-111 mmol/L Carbon Dioxide Level 24 21-32 mmol/L Blood Urea Nitrogen 39 H 7-18 mg/dL Creatinine 1.3 H 0.5-1.0 mg/dL Glomerular Filtration Rate Calc 40 >90 mL/min Random Glucose 130 H 70-105 mg/dL Total Calcium 8.1 L 8.5-10.1 mg/dL Total Bilirubin 0.6 0.2-1.0 mg/dL Aspartate Amino Transf (AST/SGOT) 16 10-37 U/L Alanine Aminotransferase (ALT/SGPT) 23 12-78 U/L Alkaline Phosphatase 52 50-136 U/L B-Type Natriuretic Peptide 110 H 0-100 pg/mL Total Protein 5.2 L 6.0-8.3 g/dL Albumin 2.3 L 3.5-5.0 g/dL Magnesium Level 2.50 H 1.80-2.40 mg/dL Diagnostics / Radiology: [Copy/Paste Echos/Imaging Report here] Impression and Plan: [Syncope Hypertensive urgency Leukocytosis Normocytic normochromic anemia Multidrug resistant hypertension Hyperlipidemia with statin intolerance Normal stress perfusion with LVEF of 72% by Lexiscan Cardiolite stress test on 04/24/2019 LVEF of >65% via 2D echo on 12/03/2022 History of stage II diastolic dysfunction via 2D echo on 06/09/2019 CKD stage IIIb Asthma Chronic bronchitis Obstructive sleep apnea on CPAP therapy Venous insufficiency PAD GERD Syncope 2D echo on 11/07/2024 with an LVEF of >55% with grade 1 diastolic dysfunction -The patient has been refusing orthostatic vital signs but currently has agreed, pending orthostatic vital signs -Continuous telemetry monitoring -Orthostatics have been negative , with no events noted on telemetry. -We will plan for an outpatient event monitor Hypertensive urgency Blood pressure on admission of 219/72 mmHg -Blood pressure is not at goal -Continue Carvedilol 6.25 mg b.i.d., Amlodipine 5 mg b.i.d. We will increase Hydralazine to 50 mg t.i.d., -Start Imdur 30 mg daily and assess BP response an up titrate as needed Thank you for this consult , cardiology will sign at this time , the patient will follow up in clinic 1-2 weeks Andres Goetz MD ] ATTESTATION BY PHYSICIAN I have seen and examined the patient, reviewed the above documentation, participated in medical decision making, made necessary modifications, and agree with the treatment plan as documented by my mid-level provider above. MD LAURY Trinh JAMES R MD Nov 10, 2024 15:10
[2024-11-10 16:00] VITALS: BP 152/58; PULSE 77; RESP 18; TEMP 98.5
--- NOTE | 2024-11-10 17:32 | PN ---
PROGRESS NOTE Date of Service: Nov 10, 2024 Time of Service: 17:32 SUBJECTIVE: Patient is evaluated at bedside in room 401 for wound care follow up. Patient is resting in bed with patient's son at bedside during today's evaluation. Patient reports no complaints or discomforts at this time. REVIEW OF SYSTEMS CONSTITUTIONAL: Denies fever, chills, or fatigue. HEAD/FACE: No signs of trauma. EENT: Denies eye pain, blurred vision, double vision, or light sensitivity. RESPIRATORY: Denies shortness of breath, cough, wheezing CARDIOVASCULAR: Denies chest pain, palpitation, syncope GASTROINTESTINAL/ABDOMINAL: Denies abdominal pain, constipation, diarrhea, nausea or vomiting GENITOURINARY: Denies dysuria or hematuria. MUSCULOSKELETAL: Denies joint pain, tenderness, or trauma. INTEGUMENTARY: Denies rash or itchiness NEUROLOGICAL/PSYCH: Denies anxiety, depression, heat or cold intolerance. PHYSICAL EXAM EYES: Anicteric. Pupils equal and reactive. HENT: No oral thrush seen, moist Oral mucosa NECK: Supple, no JVD or thyromegaly. LUNGS: Good air entry. No rales, no rhonchi. CARDIOVASCULAR: S1, S2 regular. No murmur heard. ABDOMEN: Soft, non tender, bowel sounds present, no organomegaly CENTRAL NERVOUS SYSTEM: Awake, alert, oriented x 3. No focal deficits. SKIN: Skin tear to right elbow, right upper arm, left knee, and left upper arm noted with 100% granulation with minimal serous drainage with mild periwound erythema. LYMPHATICS: No peripheral lymphadenopathy MUSCULOSKELETAL: No joint swelling, erythema or tenderness. EXTREMITIES: No cyanosis or clubbing BACK: No deformity, no pressure ulcer. GENITOURINARY: No dysuria or hematuria Vital Signs (last 8hr) Date Time Temp Pulse Resp B/P (MAP) Pulse Ox O2 Delivery O2 Flow Rate FiO2 11/10/24 12:09 98.1 74 20 165/72 93 Room Air LABS: Laboratory: Test 11/10/24 03:50 11/09/24 03:18 11/08/24 18:30 Range/Units White Blood Count 9.6 4.8-10.8 K/uL Red Blood Count 3.30 L 4.00-5.50 MIL/uL Hemoglobin 10.3 L 12.0-16.0 g/dL Hematocrit 30.1 L 36-48 % Mean Corpuscular Volume 91.2 79-99 fL Mean Corpuscular Hemoglobin 31.2 27.0-33.0 pg Mean Corpuscular Hemoglobin Concent 34.2 32.0-36.0 g/dL Red Cell Distribution Width 13.1 11.0-15.5 % Platelet Count 190 130-400 K/uL Mean Platelet Volume 9.3 7.5-10.5 fL Immature Granulocyte % (Auto) 2.4 H 0-1 % Neutrophils (%) (Auto) 74.0 40.0-77.0 % Lymphocytes (%) (Auto) 15.2 L 21.0-51.0 % Monocytes (%) (Auto) 7.0 3.0-13.0 % Eosinophils (%) (Auto) 1.0 0.0-8.0 % Basophils (%) (Auto) 0.4 0.0-5.0 % Neutrophils # (Auto) 7.1 1.8-7.7 K/uL Lymphocytes # (Auto) 1.5 1.0-4.8 K/uL Monocytes # (Auto) 0.7 0.1-1.0 K/uL Eosinophils # (Auto) 0.10 0.00-0.70 K/uL Basophils # (Auto) 0.04 0.00-0.20 K/uL Absolute Immature Granulocyte (auto 0.23 0-1 K/uL Nucleated Red Blood Cells 0.0 0.0-0.19 % Sodium Level 136 136-145 mmol/L Potassium Level 5.1 3.5-5.1 mmol/L Chloride Level 105 101-111 mmol/L Carbon Dioxide Level 24 21-32 mmol/L Blood Urea Nitrogen 39 H 7-18 mg/dL Creatinine 1.3 H 0.5-1.0 mg/dL Glomerular Filtration Rate Calc 40 >90 mL/min Random Glucose 130 H 70-105 mg/dL Total Calcium 8.1 L 8.5-10.1 mg/dL Total Bilirubin 0.6 0.2-1.0 mg/dL Aspartate Amino Transf (AST/SGOT) 16 10-37 U/L Alanine Aminotransferase (ALT/SGPT) 23 12-78 U/L Alkaline Phosphatase 52 50-136 U/L B-Type Natriuretic Peptide 110 H 0-100 pg/mL Total Protein 5.2 L 6.0-8.3 g/dL Albumin 2.3 L 3.5-5.0 g/dL Magnesium Level 2.50 H 1.80-2.40 mg/dL Urine Opiates Screen NEGATIVE NEGATIVE Urine Barbiturates Screen NEGATIVE NEGATIVE Urine Phencyclidine Screen NEGATIVE NEGATIVE Urine Amphetamines Screen NEGATIVE NEGATIVE Urine Benzodiazepines Screen NEGATIVE NEGATIVE Urine Cocaine Screen NEGATIVE NEGATIVE Urine Marijuana (THC) Screen NEGATIVE NEGATIVE PROBLEM LIST : Medical Problems: Unspecified open wound to right elbow Unspecified open wound to right upper arm Unspecified open wound to left upper arm Unspecified open wound to left knee PLAN: Continue Wound care to right elbow, right upper arm, left upper arm, and left knee- Cleanse with normal saline, pat dry, apply bacitracin ointment, cover with adaptic/Vaseline gauze, gauze, wrap with kerlix secure with tape change daily and prn Keep wounds clean and dry Offloading/reposition q 2 hours Comorbidities per primary care team Further Management per hospital course. Thank You for the consult and allowing us to participate in the care of this patient. ATTESTATION BY PHYSICIAN I have seen and examined the patient. I reviewed the documentation, medical dec ision making, and treatment plan as noted by the mid-level provider above. I agree with the findings and plan of care. ALICE CHERY MD, MICHELLE A NP Nov 10, 2024 17:32 ALICE CHERY MD Nov 20, 2024 14:34
--- NOTE | 2024-11-10 17:56 | NUR ---
PATIENT DISCHARGE HOME VIA PERSONAL VEHICLE. TELE MONITOR AND IV REMOVED INTACT. ALL QUESTIONS AND CONCERNS ANSWERED. PHARMACY CALLED TO VERIFY MEDICATION MEDICATION ARE CALLED IN.
--- NOTE | 2024-11-10 22:51 | DS ---
[facility] DISCHARGE SUMMARY Date Patient Seen: Nov 10, 2024 Time of Visit: 22:47 Supervising Physician: JODY MOHR Primary Care Physician: Dr. Yadira Chambers ] Outpatient Specialists: [Dr. Oscar-nephro, Dr. Uribe-cardiology] Inpatient Consults: [Dr. Oneal-wounds ] PROBLEM LIST: Syncope and Collapse , POA 2/2 vasovagal response BARBIE on CKD-POA, resolved Sinus bradycardia, improved Hypertensive [id number] Leukocytosis-POA, possibly reactive- no signs and symptoms of infectious process Mulitple Wounds laceration and cuts on nasal bridge, arms and legs with bruising on the chin ,POA HLD Asthma AJ HOSPITAL COURSE: Patient is a 89-year-old female with PMH significant for HTN, bradycardia, HLD, asthma, AJ and CKD who had an unwitnessed syncopal event at home of unknown duration and triggers. Patient claims she was on her way to the bathroom to clear her throat of the awter she was trying to swallow then next thing she knew, she woke-up with blood on her arms and legs with wounds so she activated her medic-alert necklace. Her son lives few houses from her and able to call the EMS. She claims that it has been months since her last fall incident but this is the first time she ever had a fainting spell this bad. She sustained multiple laceration and cuts on her arms and left leg. Patient claims she was in her usual state of health prior to this unfortunate event and was not feeling ill at all. No prior HX of CVA or seizure. She claims that she has bradycardia episodes. She will benefit in getting a continuous holter/Ziopatch monitoring, she follows-up with Dr. [facility]. Physical assessment was negative for focal neurologic deficits. Carvedilol was discontinued,Bradycardia resolved. Orthostatic Blood pressures negative . Cardiology and Neurology did evaluate the patient. Patient was seen by Wound care in house for wounds . SNF was recommended however family declined . Medications optimized by Cardiology team . Family updated on plan of care . New Medications: Carvedilol (Coreg) 6.25 Mg Tablet 6.25 MG PO BID for 30 Days, #60 TAB Gabapentin (Neurontin) 100 Mg Capsule 100 MG PO BID for 30 Days, #60 CAP Hydralazine HCl (Apresoline) 25 Mg Tab 25 MG PO TID for 30 Days, #90 TAB [Isosorbide [place] 30MG Sr Tab] () 30 MG TAB.ER.24H 30 MG PO DAILY for 30 Days, #30 0 Refills Continued Medications: Albuterol Sulfate (Proair Hfa) 8.5 Gm Hfa.aer.ad 8.5 GM IH Q6HPRN PRN for asthma Amlodipine Besylate (Amlodipine Besylate) 5 Mg Tablet 5 MG PO BID, TAB Cetirizine HCl (Cetirizine HCl) 10 Mg Tab.chew 10 MG PO DAILY, TAB.CHEW Chlorthalidone (Chlorthalidone) 25 Mg Tablet 25 MG PO DAILY, TAB Cholecalciferol (Vitamin D3) (Vitamin D3) 25 Mcg (1000 Unit) Tablet 1 TAB PO DAILY for 30 Days, #30 TAB 0 Refills Ferrous Sulfate (Ferrous Sulfate) 325 Mg (65 Mg Iron) Ectab 325 MG PO DAILY, TAB.EC Fluticasone/Umeclidin/Vilanter (Trelegy Ellipta 200-62.5-25) 1 Each Blst.w.dev 1 EACH IH DAILY Folic Acid/Vit B Complex and C (Nephro Vitamins Tablet) 0.8 Mg Tablet 1 TAB PO DAILY, TAB Mag Hydrox/Aluminum Hyd/Simeth (Mylanta Maximum Strength Liq) 400 Mg-400 Mg-40 Mg/5 Ml Oral.susp 355 ML PO AD, ML Montelukast Sodium (Singulair) 10 Mg Tablet 10 MG PO DAILYBKFST, TAB Discontinued Medications: Carvedilol (Carvedilol) 25 Mg Tablet 25 MG PO BID, TAB PHYSICAL EXAM: GENERAL: alert, weak, awake oriented x 3 HEENT: EOMI, Sclera non icteric, dry mucosa, cuts on her nasal bridge and bruise on her chin NECK: Supple, no JVD, trachea midline LUNGS: Clear breath sounds bilaterally. No wheezes HEART: Regular rate and rhythm. Normal S1 and S2, without murmurs ABD: Abdomen soft, nontender. Bowel sounds present EXT: No clubbing cyanosis or edema, wounds and cuts in BUE and left leg with steristrips NEURO: Alert and oriented to person, follows commands FOLLOW-UP: Follow-up with PCP in 2-3 days for home hlth arrangement Cardiology 1 week Erick Oneal, Wound care . RECOMMENDATIONS: See Discharge Instructions This case was seen and discussed with my supervising physician. More than 30 minutes spent on discharge process, including evaluation of the patient, discussion with nursing staff, medication reconciliation and follow-up appointments TERRELL CARLOS Nov 10, 2024 22:51
[2024-11-11] MEDS ORDERED: ISOSORBIDE MONO 30MG SR TAB PO SCH (09:00)
== END 2024-11-10 18:16 | disposition home or self-care (01) ==
LOC: EDH 12:45 → EDHIP 14:50 → 4AH 17:15
PROVIDERS: ADMIT Internal Medicine Critical Care Medicine; ATTEND Internal Medicine Critical Care Medicine
DX: R55 Syncope and collapse (principal); I16.0 Hypertensive urgency; I12.9 Hypertensive chronic kidney disease with stage 1 through stage 4 chronic kidney disease, or unspecified chronic kidney disease; N18.32 Chronic kidney disease, stage 3b; N17.9 Acute kidney failure, unspecified; R00.1 Bradycardia, unspecified; S41.111A Laceration without foreign body of right upper arm, initial encounter; S41.112A Laceration without foreign body of left upper arm, initial encounter; J18.9 Pneumonia, unspecified organism; K21.9 Gastro-esophageal reflux disease without esophagitis; E78.00 Pure hypercholesterolemia, unspecified; D63.1 Anemia in chronic kidney disease; R79.1 Abnormal coagulation profile; I87.2 Venous insufficiency (chronic) (peripheral); G47.33 Obstructive sleep apnea (adult) (pediatric); D17.9 Benign lipomatous neoplasm, unspecified; W18.39XA Other fall on same level, initial encounter; Y93.89 Activity, other specified; Y92.89 Other specified places as the place of occurrence of the external cause; Y99.8 Other external cause status; Z20.822 Contact with and (suspected) exposure to COVID-19; Z79.899 Other long term (current) drug therapy; Z90.710 Acquired absence of both cervix and uterus; Z98.890 Other specified postprocedural states
CPT/HCPCS: 96365; 96367; 99285; 80051; 83735 ×4; 84484; 80048 ×2; 85025 ×4; 81003; 36415 ×5; 90714; 71045 ×2; 73060 ×2; 73551 ×2; 71100 ×2; 73590 ×2; 71250; 70486; 76770; 93880; 90471; 93005; 94640; 96376 ×4; 96372 ×4; 96366; 96375; 84100; 87804 ×2; 87426; 70450; 93306; 93356; 97161; 97530 ×4; 95819; 80053 ×3; 80305; 83880; G0378 ×99; J1956; J2270; J7030; J0360 ×4; J2405 ×2; J3373; J1650 ×4; J1171 ×6; 94664; J3490

== ENCOUNTER → 2024-11-21 | Outpatient (CLI) | payer OTHER, MEDICARE ==
[~2024-11-21] MED LIST changes: +AMLO-257 PO; -AMLO-258 PO; -AMLODIPINE PO; +CARV6.2579 PO; -CETI10CA5 PO; +CHLO25TA3 PO; +CHOL100020 PO; -CLON0.1T PO; +FERS325 PO; -FLUT16H NASAL; +FOLI0.8T53 PO; +GABA100C PO; +HYDR25 PO; +Isosorbide Mono 30MG Sr Tab PO; +MAG-156 PO; -NEBI5TAB9 PO; -PANT40TA54 PO; -PRED10TA3 PO; -TRAM100T56 PO
== END | disposition home or self-care (01) ==
LOC: WHH 07:54
PROVIDERS: ATTEND Family Medicine
DX: S81.012A Laceration without foreign body, left knee, initial encounter (principal); S41.112A Laceration without foreign body of left upper arm, initial encounter; S41.111A Laceration without foreign body of right upper arm, initial encounter; S51.011A Laceration without foreign body of right elbow, initial encounter; I12.9 Hypertensive chronic kidney disease with stage 1 through stage 4 chronic kidney disease, or unspecified chronic kidney disease; N18.9 Chronic kidney disease, unspecified; I87.2 Venous insufficiency (chronic) (peripheral); J45.909 Unspecified asthma, uncomplicated; G47.33 Obstructive sleep apnea (adult) (pediatric); K21.9 Gastro-esophageal reflux disease without esophagitis; E78.5 Hyperlipidemia, unspecified; Z90.49 Acquired absence of other specified parts of digestive tract; Z98.890 Other specified postprocedural states; Z79.899 Other long term (current) drug therapy; X58.XXXA Exposure to other specified factors, initial encounter; Y93.89 Activity, other specified; Y92.89 Other specified places as the place of occurrence of the external cause; Y99.8 Other external cause status
CPT/HCPCS: G0463; A4450

== ENCOUNTER → 2024-12-05 | Outpatient (CLI) | payer OTHER, MEDICARE ==
[~2024-12-05] MED LIST changes: +LIDOCAINE HCL 4% LTA SOL 4 ML VIAL TP ONE
== END | disposition home or self-care (01) ==
LOC: WHH 08:15
PROVIDERS: ATTEND Family Medicine
DX: S81.012D Laceration without foreign body, left knee, subsequent encounter (principal); S41.112D Laceration without foreign body of left upper arm, subsequent encounter; S41.111D Laceration without foreign body of right upper arm, subsequent encounter; S51.011D Laceration without foreign body of right elbow, subsequent encounter; I87.2 Venous insufficiency (chronic) (peripheral); I12.9 Hypertensive chronic kidney disease with stage 1 through stage 4 chronic kidney disease, or unspecified chronic kidney disease; N18.9 Chronic kidney disease, unspecified; J45.909 Unspecified asthma, uncomplicated; G47.33 Obstructive sleep apnea (adult) (pediatric); K21.9 Gastro-esophageal reflux disease without esophagitis; E78.5 Hyperlipidemia, unspecified; Z90.49 Acquired absence of other specified parts of digestive tract; Z98.890 Other specified postprocedural states; Z79.899 Other long term (current) drug therapy; W19.XXXD Unspecified fall, subsequent encounter
CPT/HCPCS: G0463; A6209

== ENCOUNTER → 2024-12-12 | Outpatient (CLI) | payer OTHER, MEDICARE | END | disposition home or self-care (01) | LOC: WHH 08:08 | PROVIDERS: ATTEND Family Medicine | DX: S81.012D Laceration without foreign body, left knee, subsequent encounter (principal); S41.112D Laceration without foreign body of left upper arm, subsequent encounter; S41.111D Laceration without foreign body of right upper arm, subsequent encounter; I87.2 Venous insufficiency (chronic) (peripheral); I12.9 Hypertensive chronic kidney disease with stage 1 through stage 4 chronic kidney disease, or unspecified chronic kidney disease; N18.9 Chronic kidney disease, unspecified; J45.909 Unspecified asthma, uncomplicated; G47.33 Obstructive sleep apnea (adult) (pediatric); K21.9 Gastro-esophageal reflux disease without esophagitis; E78.5 Hyperlipidemia, unspecified; Z90.49 Acquired absence of other specified parts of digestive tract; Z98.890 Other specified postprocedural states; Z79.899 Other long term (current) drug therapy; W19.XXXD Unspecified fall, subsequent encounter | CPT/HCPCS: 11042; A6209 ==

== ENCOUNTER 2024-12-24 22:04 | Emergency (ER) | payer OTHER, MEDICARE ==
[~2024-12-24] VITALS: Ht 165.1 cm; Wt 79.4 kg
[~2024-12-24 22:04] MED LIST changes: -LIDOCAINE HCL 4% LTA SOL 4 ML VIAL TP ONE
[2024-12-24 22:59] VITALS: TEMP 99
[2024-12-25 00:45] VITALS: BP 178/62; PULSE 80; RESP 16; O2SAT 100
--- NOTE | 2024-12-25 00:51 | HMCIMG ---
EXAM: CT Lumbar Spine Without IV contrast. CLINICAL HISTORY: Low back pain. TECHNIQUE: Axial computed tomography images of the lumbar spine without intravenous contrast. Sagittal and coronal reformatted images were generated. COMPARISON: None provided. FINDINGS: ALIGNMENT: Bony alignment is anatomic. DISCS/DEGENERATIVE CHANGES: Multilevel moderate spondylotic changes in the lumbar spine manifested by marginal osteophytes and facet joint arthropathy. BONES: Generalized osteopenia. Age-indeterminate wedge compression deformities of the L1 and L2 vertebral bodies with a 40-50% reduction in height with cortical irregularity around the inferior endplates. Superior endplate Schmorl's node in the L1 vertebra. Sclerosis along the inferior endplate of the L2 vertebra. The first [id number] vertebra is designated as the L1 vertebral body. No other fracture or aggressively appearing osseous lesion is evident. SOFT TISSUES: Atheromatous calcifications in the aorta without evidence of aneurysm. The soft tissues are otherwise unremarkable. IMPRESSION: Age-indeterminate wedge compression deformities of the L1 and L2 vertebral bodies with 40-50% height loss with cortical irregularities around the inferior endplates. Recommend MRI of the lumbar spine for further evaluation. Multilevel moderate lumbar spondylosis with marginal osteophytes and facet arthropathy. Generalized osteopenia. /[place]
--- NOTE | 2024-12-25 00:55 | NUR ---
PT REQUEST TO TAKE NIGHT HOME BLOOD PRESSURE MEDICATION AT BEDSIDE. ED RN MADE INTERNAL MEDICINE PHYSICIAN [place] AWARE. INTERNAL MEDICINE PHYSICIAN [place] CLEARED PT TO TAKE HOME MEDICATION.
--- NOTE | 2024-12-25 01:02 | NUR ---
SPEECH THERAPY ASSISTANT [place] MADE AWARE OF PAIN LEVEL
--- NOTE | 2024-12-25 01:14 | ERN ---
ED Note History of Present Illness Stated Complaint: BACK PAIN X 3 DAYS Chief Complaint: Back Pain or Injury Time Seen by MD: 22:06 Time Seen by Midlevel: 22:10 Dictation: 89-year-old female complaining of lower back pain onset for the last couple of m onths however states in the last three days has worsened. Patient denies any trauma. Denies having any dysuria hematuria or flank pain. Denies any fever, nausea vomiting or diarrhea. Denies any chest pain or chest discomfort or shortness a breath. Patient denies any weakness, tingling, numbness, or any incontinence. Patient states the last time she took her tramadol for pain was yesterday. Allergies: Coded Allergies: aspirin (Unverified Allergy, Severe, SHORTNESS OF BREATH, 08/01/13) succinylcholine (Unverified Allergy, Severe, BECAME VERY RIGID, COULD NOT OPEN MOUTH, 08/01/13) pravastatin (Unverified Allergy, Intermediate, 03/03/21) Penicillins (Unverified Allergy, Unknown, GENERALIZED RASH, 08/01/13) acetaminophen (Unverified Allergy, Unknown, SHORTNESS OF BREATH, 12/04/14) WHEEZING ibuprofen (Unverified Allergy, Unknown, TRIGGERS ASTHMA, 08/01/13) propofol (Unverified Allergy, Unknown, 09/21/20) sulfamethoxazole (Unverified Allergy, Unknown, STOMACH PAIN, 08/01/13) trimethoprim (Unverified Allergy, Unknown, STOMACH PAIN, 08/01/13) Home Meds Active Scripts [Isosorbide Harvey 30MG Sr Tab] 30 MG TAB.ER.24H No Conflict Check, 30 MG PO DAILY for 30 Days, #30 0 Refills Prov:TERRELL CARLOS 11/10/24 Hydralazine HCl (Apresoline) 25 Mg Tab, 25 MG PO TID for 30 Days, #90 TAB Prov:TERRELL CARLOS 11/10/24 Gabapentin (Neurontin) 100 Mg Capsule, 100 MG PO BID for 30 Days, #60 CAP Prov:TERRELL CARLOS 11/10/24 Carvedilol (Coreg) 6.25 Mg Tablet, 6.25 MG PO BID for 30 Days, #60 TAB Prov:TERRELL CARLOS 11/10/24 Reported Medications Mag Hydrox/Aluminum Hyd/Simeth (Mylanta Maximum Strength Liq) 400 Mg-400 Mg-40 Mg/5 Ml Oral.susp, 355 ML PO AD, ML 11/06/24 Chlorthalidone (Chlorthalidone) 25 Mg Tablet, 25 MG PO DAILY, TAB 11/06/24 Cholecalciferol (Vitamin D3) (Vitamin D3) 25 Mcg (1000 Unit) Tablet, 1 TAB PO DAILY for 30 Days, #30 TAB 0 Refills 11/06/24 Ferrous Sulfate (Ferrous Sulfate) 325 Mg (65 Mg Iron) Ectab, 325 MG PO DAILY, TAB.EC 11/06/24 Amlodipine Besylate (Amlodipine Besylate) 5 Mg Tablet, 5 MG PO BID, TAB 11/06/24 Folic Acid/Vit B Complex and C (Nephro Vitamins Tablet) 0.8 Mg Tablet, 1 TAB PO DAILY, TAB 11/06/24 Montelukast Sodium (Singulair) 10 Mg Tablet, 10 MG PO DAILYBKFST, TAB 09/21/20 Albuterol Sulfate (Proair Hfa) 8.5 Gm Hfa.aer.ad, 8.5 GM IH Q6HPRN PRN for asthma 09/21/20 Fluticasone/Umeclidin/Vilanter (Trelegy Ellipta 200-62.5-25) 1 Each Blst.w.dev, 1 EACH IH DAILY 09/21/20 Cetirizine HCl (Cetirizine HCl) 10 Mg Tab.chew, 10 MG PO DAILY, TAB.CHEW 09/20/20 Past Medical History Past Medical History: Asthma, High Cholesterol, Hypertension, Renal Disese Surgical History: Other Surgical History Other: BILATERAL CATARACTS,BLADDER LIFT,LIPOMA R ANKLE, BILAT SHOULDERS History: Not Applicable Review of System Dictation General: awake, alert, NAD Head/Face: Normocephalic, atraumatic Eyes: PERRL, EOMI, vision at baseline ENT: oral cavity clear, TMs clear, no signs of infection Neck: Trachea midline, supple, no nuchal rigidity Cardiovascular: RRR, normal S1/S2, No MRGs, no JVD Respiratory: CTAB, no respiratory distress, No rales or wheezes Abdomen: Soft, non-tender, non-distended, normal bowel sounds, no guarding or rebound. Skin: Warm, dry, normal turgor, no rash MS/Extremity: Pulses equal, no cyanosis, neurovascular intact, FROM Neuro: COAx4, GCS 15, strength 5/5, CN 2-12 intact, normal cerebellar exam, normal gait, Psych: Normal behavior, mood, and affect normal Review of Systems: was completed Initial Vital Sign VS Vital Signs Date Time Temp Pulse Resp B/P (MAP) Pulse Ox O2 Delivery O2 Flow Rate FiO2 12/24/24 22:06 99.0 74 16 140/80 96 Room Air 0 12/24/24 22:59 21 Physical Exam Dictation General: awake, alert, NAD Head/Face: Normocephalic, atraumatic Eyes: PERRL, EOMI, vision at baseline ENT: oral cavity clear, TMs clear, no signs of infection Neck: Trachea midline, supple, no nuchal rigidity Cardiovascular: RRR, normal S1/S2, No MRGs, no JVD Respiratory: CTAB, no respiratory distress, No rales or wheezes Abdomen: Soft, non-tender, non-distended, normal bowel sounds, no guarding or rebound. Skin: Warm, dry, normal turgor, no rash MS/Extremity: Pulses equal, no cyanosis, neurovascular intact, FROM complaining of back pain, along the L-spine on palpation Neuro: COAx4, GCS 15, strength 5/5, CN 2-12 intact, normal cerebellar exam, normal gait, Psych: Normal behavior, mood, and affect normal Results (Laboratory/Radiology) CT Scan Comment: [place] [address] IMAGING REPORT Signed PATIENT: LILIANA WHITMAN MR#: [id number] : 1935 SEX: F AGE: 89 LOCATION: ED ORDER 32 STATUS: REG REPORT#: [id number] SERVICE 29 REASON: pain ORDERING PHYSICIAN: MINERVA BAL CNP PROCEDURE: L SPIN WO - CT LUMBAR SPINE W/O CONTRAST EXAM: CT Lumbar Spine Without IV contrast. CLINICAL HISTORY: Low back pain. TECHNIQUE: Axial computed tomography images of the lumbar spine without intravenous contrast. Sagittal and coronal reformatted images were generated. COMPARISON: None provided. FINDINGS: ALIGNMENT: Bony alignment is anatomic. DISCS/DEGENERATIVE CHANGES: Multilevel moderate spondylotic changes in the lumbar spine manifested by marginal osteophytes and facet joint arthropathy. BONES: Generalized osteopenia. Age-indeterminate wedge compression deformities of the L1 and L2 vertebral bodies with a 40-50% reduction in height with cortical irregularity around the inferior endplates. Superior endplate Schmorl's node in the L1 vertebra. Sclerosis along the inferior endplate of the L2 vertebra. The first [id number] vertebra is designated as the L1 vertebral body. No other fracture or aggressively appearing osseous lesion is evident. SOFT TISSUES: Atheromatous calcifications in the aorta without evidence of aneurysm. The soft tissues are otherwise unremarkable. IMPRESSION: Age-indeterminate wedge compression deformities of the L1 and L2 vertebral bodies with 40-50% height loss with cortical irregularities around the inferior endplates. Recommend MRI of the lumbar spine for further evaluation. Multilevel moderate lumbar spondylosis with marginal osteophytes and facet arthropathy. Generalized osteopenia. /[place] DICTATED BY: ONEYDA CAMPBELL Jr., MD DATE: 12/25/24150 ELECTRONICALLY SIGNED BY: ONEYDA CAMPBELL Jr., MD DATE: 12/25/24150 ED Course ED Course Orders Procedure Category Date Status Time Ct Lumbar Spine W/O CT 12/24/24 Resulted Contrast 22:30 Tramadol Hcl (Ultram) PHA 12/25/24 Verified 01:02 Vital Signs Date Time Temp Pulse Resp B/P (MAP) Pulse Ox O2 Delivery O2 Flow Rate FiO2 12/24/24 22:59 99.0 71 17 176/68 100 Room Air* 0 21 12/24/24 22:06 99.0 74 16 140/80 96 Room Air 0 Medical Decision Making MDM MDM: 89-year-old female complaining of lower back pain onset for the last couple of months however states in the last three days has worsened. Patient denies any trauma. Denies having any dysuria hematuria or flank pain. Denies any fever, nausea vomiting or diarrhea. Denies any chest pain or chest discomfort or shortness a breath. Patient denies any weakness, tingling, numbness, or any incontinence. Patient states the last time she took her tramadol for pain was yesterday.CT scan of the L-spine shows age indeterminate wedge compression deformities of L1 and L2, multilevel moderate lumbar spondylosis with a marginal osteophytes, generalized orthopnea. Images discussed with the ER MD. recommend patient to be discharged to follow up outpatient has not these findings seems to be old. Discussed findings with the patient. Educated to continue taking the tramadol at home and follow up with PCP. Patient states she has a appointment on the . Educated on red flag symptoms of when to return back to the emergency room. Patient verbalized understanding, answered all questions. Differential diagnosis: Muscle spasm, L-spine injury, arthritis Rationale: Tests considered and ordered secondary to shared decision making include: Previous outside records reviewed: Old ER visits. Risk of complication and/or morbidity or mortality of patient management: None Medications-Per medication reconciliation Need for hospitalization: Patient does not meet criteria for hospitalization. Need for emergency major/minor surgery: No There are no social concerns with this patient. Prescription drug management Prescriptions will include symptomatic care Patient's prior external medical records from other ER visits were reviewed by me as indicated. Prior testing and results from previous visits were reviewed. Prior tests were taken into account with medical decision making and resource utilization, independent historian/historians were used to obtain complete medical history. I independently interpreted the test that were performed, results were reviewed by me and considered findings on radiology if ordered. Medical management and examination interpretation discussions were had by me with other qualified healthcare professionals as indicated for the patient's care. DX & DISP Disposition: Discharge Departure Impression: Primary Impression: Back pain Additional Impressions: Osteopenia, Lumbar spondylosis Condition: Stable Additional Instructions: Continue taking your tramadol at home. Keep your appointment with your PCP on the . Return to the hospital if you develop any severe back pain, incontinence, weakness or tingling to your extremities. Referrals: LOLI KAMARA DO (PCP) Time of Disposition: 01:13 I have reviewed the case, and I agree with, Diagnosis and Plan MINERVA BAL CNP Dec 25, 2024 01:13
--- NOTE | 2024-12-25 01:40 | NUR ---
PT REFUSING BP CUFF BLOOD PRESSURE TO BE TAKEN. PT REPORTS "IT HURTS TO MUCH." PT EDUCATED ON THE IMPORTANCE OF BP MONITORING. PT VERBLIZED UNDERSTANDING OF EDUCATION AT THIS TIME. PT STILL REFUSING BP TO BE TAKEN. PT SHOWS NO SIGNS OF DISTRESS. EVEN AND UNLABORED BREATHING NOTED.
--- NOTE | 2024-12-25 01:40 | NUR ---
ED RN NOTIFIED ED COMPUTER DESIGNER MINERVA ABOUT PT REFUSING BP MONITORING.
== END 2024-12-25 02:20 | disposition home or self-care (01) ==
LOC: EDH 22:04
DX: M47.816 Spondylosis without myelopathy or radiculopathy, lumbar region (principal); M85.80 Other specified disorders of bone density and structure, unspecified site; J45.909 Unspecified asthma, uncomplicated; E78.00 Pure hypercholesterolemia, unspecified; I10 Essential (primary) hypertension; Z88.0 Allergy status to penicillin; Z88.2 Allergy status to sulfonamides; Z88.1 Allergy status to other antibiotic agents; Z88.6 Allergy status to analgesic agent; Z88.8 Allergy status to other drugs, medicaments and biological substances; Z79.899 Other long term (current) drug therapy
CPT/HCPCS: 72131; 99284

== ENCOUNTER → 2025-01-02 | Outpatient (CLI) | payer OTHER, MEDICARE | END | disposition home or self-care (01) | LOC: WHH 08:11 | PROVIDERS: ATTEND Family Medicine | DX: S81.002D Unspecified open wound, left knee, subsequent encounter (principal); S81.012D Laceration without foreign body, left knee, subsequent encounter; S41.112D Laceration without foreign body of left upper arm, subsequent encounter; S41.111D Laceration without foreign body of right upper arm, subsequent encounter; I87.2 Venous insufficiency (chronic) (peripheral); I12.9 Hypertensive chronic kidney disease with stage 1 through stage 4 chronic kidney disease, or unspecified chronic kidney disease; N18.9 Chronic kidney disease, unspecified; J45.909 Unspecified asthma, uncomplicated; G47.33 Obstructive sleep apnea (adult) (pediatric); K21.9 Gastro-esophageal reflux disease without esophagitis; E78.5 Hyperlipidemia, unspecified; Z90.49 Acquired absence of other specified parts of digestive tract; Z98.890 Other specified postprocedural states; Z79.899 Other long term (current) drug therapy; W19.XXXD Unspecified fall, subsequent encounter | CPT/HCPCS: G0463; A6212; A6209 ==

== ENCOUNTER → 2025-01-09 | Outpatient (CLI) | payer OTHER, MEDICARE | END | disposition home or self-care (01) | LOC: WHH 08:17 | PROVIDERS: ATTEND Family Medicine | DX: S81.002D Unspecified open wound, left knee, subsequent encounter (principal); S81.012D Laceration without foreign body, left knee, subsequent encounter; S41.112D Laceration without foreign body of left upper arm, subsequent encounter; S41.111D Laceration without foreign body of right upper arm, subsequent encounter; I87.2 Venous insufficiency (chronic) (peripheral); I12.9 Hypertensive chronic kidney disease with stage 1 through stage 4 chronic kidney disease, or unspecified chronic kidney disease; N18.9 Chronic kidney disease, unspecified; J45.909 Unspecified asthma, uncomplicated; G47.33 Obstructive sleep apnea (adult) (pediatric); K21.9 Gastro-esophageal reflux disease without esophagitis; E78.5 Hyperlipidemia, unspecified; Z90.49 Acquired absence of other specified parts of digestive tract; Z98.890 Other specified postprocedural states; Z79.899 Other long term (current) drug therapy; W19.XXXD Unspecified fall, subsequent encounter | CPT/HCPCS: G0463; A6212; A6209 ==

== ENCOUNTER 2025-01-16 08:06 | Outpatient (CLI) | payer OTHER, MEDICARE | END 2025-01-16 11:14 | disposition home or self-care (01) | LOC: WHH 08:06 | PROVIDERS: ATTEND Family Medicine | DX: S81.002D Unspecified open wound, left knee, subsequent encounter (principal); S81.012D Laceration without foreign body, left knee, subsequent encounter; S41.112D Laceration without foreign body of left upper arm, subsequent encounter; S41.111D Laceration without foreign body of right upper arm, subsequent encounter; I87.2 Venous insufficiency (chronic) (peripheral); I12.9 Hypertensive chronic kidney disease with stage 1 through stage 4 chronic kidney disease, or unspecified chronic kidney disease; N18.9 Chronic kidney disease, unspecified; J45.909 Unspecified asthma, uncomplicated; G47.33 Obstructive sleep apnea (adult) (pediatric); K21.9 Gastro-esophageal reflux disease without esophagitis; E78.5 Hyperlipidemia, unspecified; Z90.49 Acquired absence of other specified parts of digestive tract; Z98.890 Other specified postprocedural states; Z79.899 Other long term (current) drug therapy; W19.XXXD Unspecified fall, subsequent encounter | CPT/HCPCS: G0463 ==